=== PATIENT | female | born 2000 | race Caucasian/White ===

== ENCOUNTER 2023-10-24 13:21 | Outpatient (CLI) | payer OTHER, SELFPAY | END 2023-10-24 14:11 | disposition home or self-care (01) | LOC: LABOR 13:49 → OB 10-28 06:47 | PROVIDERS: Referring Provider Student in an Organized Health Care Education/Training Program; Visit Provider Student in an Organized Health Care Education/Training Program | DX: O47.03 False labor before 37 completed weeks of gestation, third trimester (principal); Z3A.36 36 weeks gestation of pregnancy | CPT/HCPCS: 59025; G0378; G0379 ==

== ENCOUNTER 2023-11-07 11:28 | Outpatient (CLI) | payer OTHER, SELFPAY | END 2023-11-07 12:05 | disposition home or self-care (01) | LOC: LABOR 11:39 → OB 11-11 13:08 | PROVIDERS: Referring Provider Student in an Organized Health Care Education/Training Program; Visit Provider Student in an Organized Health Care Education/Training Program | DX: O24.913 Unspecified diabetes mellitus in pregnancy, third trimester (principal); Z3A.38 38 weeks gestation of pregnancy | CPT/HCPCS: 59025; G0378; G0379 ==

== ENCOUNTER 2023-11-11 06:14 | Inpatient (IN) | payer OTHER, SELFPAY ==
[2023-11-11] MEDS: LIDOCAINE 1% 20 ML INJ (07:20)
[2023-11-11] MEDS: IBUPROFEN 600 MG TABLET PO (08:55)
[2023-11-11] MEDS: ACETAMINOPHEN 325 MG TABLET 650 MG PO (08:55)
--- NOTE | 2023-11-11 09:03 | PM.OBHP.IH.1 ---
OB HPI Date/Time Date of admission: 11/11/23 Date Patient Seen: 11/11/23 Time Patient Seen: 06:00 History of Present Condition Chief complaint: Labor JERILYN Calculator Estimated Delivery Date Method Current WG Current Estimate 11/17/23 LMP (Certain) 39w 1d : 1 Para: 0 Narrative: This is a G1 who presented to L&D complete and +2. has been complicated by intermittent care and type 1 diabetes. She has been refusing weekly NST and BPP. No recent ultrasound. She is refusing IV. She reports pushing at home since 2:30am. care: limited care Dating criteria OB: LMP confirmed by 1st trimester US Ultrasounds: normal 1st trimester US and normal mid trimester US Obstetrical complications: other (type 1 diabetes) Medical complications OB: none Preadmission Labs Last OB Lab Results: No Data to Display -: Chlamydia screen: negative and Gonorrhea screen: negative Evaluation Evaluation Baseline heart rate: 135 Variability: Average (6-10) monitor accelerations: Present Monitor Decelerations: Absent Uterine Contraction Intensity: Strong/Firm Category of Tracing: Reactive Dilation (cm): 10 Effacement (%): 100 PFSH Surgical History (Updated 10/01/23 @ 11:03 by Marcela Hilario RN) [place] teeth extracted History of tonsillectomy Family History (Updated 10/01/23 @ 11:06 by Marcela Hilario RN) Grandmother Bladder cancer Heavy smoker COPD (chronic obstructive pulmonary disease) Uncle Bladder cancer Aunt Skin cancer Grandfather Bladder cancer Aunt Type 1 diabetes Social History marital status: number of children: 0 household members: spouse lives independently: Yes caregiver/support person: No housing: house pets and animals: Yes (1 dog) education level: college occupational status: previously employed current occupational exposures/hazards: No special nancy needs: No travel history: recent seatbelt use: always water heater temp set < 120 deg: Yes working smoke detector in home: Yes fire extinguisher in home: Yes carbon monox detector in home: Yes firearms in home: Yes firearms unloaded and locked: Yes do you feel safe at home: Yes Smoking Status: Never smoker second hand exposure: No alcohol intake: former substance use type: does not use during the past year weight has: other well-balanced diet: daily or most days daily servings fruits/ve or more times/day caffeine: No (not even when not ) Type(s) of exercise: walking frequency: daily Meds Home Medications and Allergies Home Medications Medication Instructions Recorded Confirmed Type blood-glucose sensor (Dexcom G6 10/01/23 11/07/23 History Sensor device) vitamin-ferrous sulfate tab PO 10/01/23 11/07/23 History 27 mg iron-folic acid 0.8 mg tablet insulin aspart U-100 100 unit/mL 1 sliding scale dose SUBCUT 10/11/23 11/07/23 Rx subcutaneous solution (Novolog USEASDIRECTD #10 mL U-100 Insulin aspart) Allergies Allergy/AdvReac Type Severity Reaction Status Date / Time No Known Drug Allergies Allergy Unverified 11/07/23 10:54 Assessment and Plan Assessment and Plan Assessment and Plan narrative: Discussed that since patient has been pushing for 4 hours that delivery is indicated. I discussed risk of vaginal delivery including hemorrhage. Risk of vaginal delivery for baby includes shoulder dystocia which could lead to nerve damage, injury to baby or even . Patient initially refusing. Discussed risks multiple times. Patient agreeable to delivery. OR and anesthesia aware. Patient agreeable to IV. As prepping patient, water sponanteously ruptured and she delivered vaginally. Note to follow. Time-Based Coding :: Greater than 30 minutes spent with patient and on the chart (including review of chart, obtaining history, exam, reviewing outside data, placing orders, documenting exam and treatment plan, and counseling patient) on [DATE].
--- NOTE | 2023-11-11 09:14 | PM.OBPRVD ---
Events: Diabetes (type 1) Labor & Delivery Delivery date: 11/11/23 Intrapartal Events: Prolonged 2nd Stage > 2.5 hours Cervical ripening method: none Induction method: none Delivery monitor: external FHT Route of delivery: L&D Laceration Description: Perineal - 2nd Degree Delivery repair: vicryl Estimated blood loss (mL): 200 Anesthesia Type: None Complications: Shoulder dystocia Narrative: Patient presented to labor and delivery complete and +2. Patient reports pushing at home for prior 4 hours. Membranes intact. Refusing IV. complicated by Type 1 Diabetes. Patient refused weekly NST, BPP. No recent growth scan. During discussion regarding indications for , membranes spontaneously ruptured. She continued pushing with contractions and began . Patient was on hands and knees position. Head delivered without difficulty. With additional pushing, no further movement of fetus. Anterior shoulder was the right, it was palpated and behind pelvic bone. Room alerted of shoulder dystocia. Posterior arm (left) was grabbed and swept over abdomen and delivered atraumatically. With additional push, body was delivered. Total time of shoulder dystocia approximately 45 - 60 seconds. There was a loose body cord. Male with poor tone and color. Patient requested delayed cord clamping. was vigorously stimulated and dried off with warm blankets. began crying with good tone and improvement of color. passed to mother for skin to skin. At 15 minutes of life, cord was clamped and cut. Placenta delivered without difficulty. Patient declined pitocin. There was a second degree tear repaired with 3-0 vicryl. Fundus was firm. Scant bleeding. Plan for aftercare: Routine care
[2023-11-11] MEDS: WITCH HAZEL/GLYCERIN PADS 1 EACH TOP (09:38)
[2023-11-11] MEDS: LANOLIN OINT 7 GM 1 APPLIC TOP (09:39)
[2023-11-11] MEDS: DERMOPLAST SPRAY 20% 60 ML 1 SPRAY TOP (09:39)
--- NOTE | 2023-11-12 07:50 | P.PNOB_ITS ---
Subjective - OB Subjective Patient comments: no complaints [place] baby status: other (difficulty with breast feeding) feeding status: pumping and bottle feeding (supplementing with formula) Narrative: Mom sleeping soundly this AM. Dad reports she is doing well. Date Patient Seen: 11/12/23 Time Patient Seen: 07:30 Exam Narrative Exam Narrative: Resting soundly. Lochia appropriate per nursing. Assessment & Plan Plan day: 1 plan OB: routine care Comments: GBS pos with inadequate treatment. Recommend obs for 48 hours. Anticipate discharge tomorrow AM. Time-Based Coding :: 30 min spent with patient and on the chart (including review of chart, obtaining history, exam, reviewing outside data, placing orders, documenting exam and treatment plan, and counseling patient) on 11/11.
[2023-11-12] MEDS: PRENATAL VIT,CALC/IRON/FOLIC 1 TABLET 1 TAB PO (10:14)
[2023-11-12 14:17] VITALS: BP 109/58; PULSE 70; RESP 17; TEMP 36.1
--- NOTE | 2023-11-12 15:20 | PM.OBDS.1 ---
Discharge Providers Provider Date of admission: 11/11/23 06:14 Discharge Date: 11/12/23 Primary care physician: Talia KENNEDY Provider Consults: 11/11/23 06:21 Consult to Anesthesiology Urgent Comment: Consulting Provider: Anesthesiologist Reason for consultation: Epidural 11/12/23 07:37 Consult to Test Engine Mechanic Routine Comment: Discharge provider: Iliana Lopez MD Summary Hospital Course Date Patient Seen: 11/12/23 Time Patient Seen: 12:15 Diagnoses: Term , , Type 1 Diabetes Hospital Course: Patient presented to labor and delivery complete and +2. Patient reported pushing at home for prior 4 hours. Membranes intact. Initially refused IV but was agreeable. She did not receive antibiotics for GBS positive status. complicated by Type 1 Diabetes. Patient refused weekly NST, BPP. No recent growth scan. During discussion regarding indications for , membranes spontaneously ruptured. She continued pushing with contractions and began . Patient was on hands and knees position. Head delivered without difficulty. With additional pushing, no further movement of fetus. Anterior shoulder was the right, it was palpated behind pelvic bone. Room alerted of shoulder dystocia. Posterior arm (left) was grabbed and swept over abdomen and delivered atraumatically. With additional push, body was delivered. Total time of shoulder dystocia approximately 45 - 60 seconds. There was a loose body cord. Male with poor tone and color. Patient requested delayed cord clamping. was vigorously stimulated and dried off with warm blankets. began crying with good tone and improvement of color. passed to mother for skin to skin. At 15 minutes of life, cord was clamped and cut. Placenta delivered without difficulty. Patient declined pitocin. There was a second degree tear repaired with 3-0 vicryl. Fundus was firm. she recovered well. Pain and bleeding minimal. She had difficulty secondary to latch and suck. She supplemented with formula while pumping. She switched her insulin pump back to settings. [place] Peripartum Data Infant Delivery Method: Natural Vaginal Laceration Description: Vaginal - 2nd Degree Procedures: Shoulder dystocia resolved with posterior arm Status at Discharge Cognitive/behavioral status at discharge: oriented Functional status at discharge: independent ambulation Overall status at discharge: patient is back to baseline Time Spent with Patient Time attestation: Total time spent providing and/or coordinating discharge services: Time spent: Greater than 30 minutes Exam Vital Signs (past 8 hours): - 11/12/23 14:17 Temperature 97.0 F L Pulse Rate 70 Respiratory Rate 17 Blood Pressure 109/58 L Narrative Exam Narrative: NAD, fundus firm, breathing easily. Discharge Plan Discharge Plan Patient Disposition: Home Discharge orders & Medications Prescriptions: New acetaminophen 325 mg Tablet 650 mg PO Q6HR PRN (Reason: Pain, Mild (1-3)) Qty: 60 0RF ibuprofen 600 mg Tablet 600 mg PO Q6HR PRN (Reason: Pain, Mild (1-3)) Qty: 60 0RF Continued insulin aspart U-100 [Novolog U-100 Insulin aspart] 100 unit/mL solution 1 sliding scale dose SUBCUT USEASDIRECTD Qty: 10 0RF vit-ferrous sulfat-FA 27 mg iron- 0.8 mg tablet See Rx Instructions .ROUTE .COMPLEX Rx Instructions: Take as directed (DME) Dexcom G6 Sensor Device See Rx Instructions .Route Rx Instructions: As directed Follow up/Referrals: Iliana Lopez MD [Physician] - (6 week Appt w/ Dr. Lopez on Dec.16 @ 10:30am.Appointment with the clinic on at 11:00 AM.) Visit Report/Discharge Packet Instructions: DI for Labor and Delivery, Vaginal Stand Alone Forms: Discharge: Care, Patient Portal/API, Stroke Signs & Symptoms Discharge Data Primary Care Provider: Talia Kelly
== END 2023-11-12 17:18 | disposition home or self-care (01) | DRG 807 ==
PROVIDERS: Admitting Provider Student in an Organized Health Care Education/Training Program; PCP Nurse Practitioner Family; Referring Provider Student in an Organized Health Care Education/Training Program; Visit Provider Student in an Organized Health Care Education/Training Program
DX: O24.02 Pre-existing type 1 diabetes mellitus, in childbirth (principal); Z37.0 Single live birth; O63.1 Prolonged second stage (of labor); O70.1 Second degree perineal laceration during delivery; O99.824 Streptococcus B carrier state complicating childbirth; Z3A.39 39 weeks gestation of pregnancy; Z79.4 Long term (current) use of insulin
CPT/HCPCS: 59050; G0379

== ENCOUNTER 2024-08-10 13:45 | Outpatient (RCR) | payer OTHER, SELFPAY ==
--- NOTE | 2024-02-28 17:03 | PT.OIE ---
Current Diagnoses Other female genital prolapse (02/28/24) Past Surgical History (Last Updated 10/01/23 @ 11:03 by Marcela Hilario RN) History of tonsillectomy [place] teeth extracted Visit Care Team Role Provider Type CHELO Candelario Family Provider Non-Staff Primary Care Provider Specialty: Nursing Address: [facility] [address] [place], [address] Email: Iliana Lopez MD Attending Provider Physician Referring Provider Specialty: Family Practice Obstetrics Address: [address] [place] [address], [id number] Email: [email or web address] Physical Therapy Initial Evaluation PT-OP-A Visit Information Start: 02/20/24 07:28 Freq: Status: Active Protocol: Document 02/28/24 14:37 LRN (Rec: 02/28/24 17:02 LRN [id number]) Out-Patient Physical Therapy Visit Information Visit Information Visit Type Initial Evaluation Visit Start Time 14:37 Visit Stop Time 15:24 Visit Number 1 Evaluation Information Evaluation Date 02/28/24 Precautions Precautions Diabetes type 1, Back pain since she was 6 months , since childbirth has tailbone pain. PT-OP-B Current Condition Start: 02/20/24 07:28 Freq: Status: Active Protocol: Document 02/28/24 14:37 LRN (Rec: 02/28/24 17:02 LRN [id number]) Current Condition History of Current Condition Onset Date 11/11/2023 Current Complaints Pelvic organ prolapse History of Current Condition Pt is 3.5 month post- diagnosed with pelvic organ prolapse after pushing 5 hrs with 2nd degree tear up into the cervix. States stitches are dissolved and scar was present at 5 wk appt, but she has not had tear checked for healed. Her main complaint is that she has pain with intercourse, mostly with initial insertion. She denies urinary leakage problems initiating a urine stream, but reports she strains to complete voiding. Pt was on hands/knees with childbirth. Tailbone pain with sitting or walking/exerting too much. Dr Muniz said there was a high probability of tailbone cracked with how long she pushed. Natural vaginal childbirth. Prior Treatments and Tests None Developmental History Developmental History Pt with first child and is breast feeding. 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 spouse with no family locally. Insulin dependent diabetes. PT-OP-C Subjective Start: 02/20/24 07:28 Freq: Status: Active Protocol: Document 02/28/24 14:37 LRN (Rec: 02/28/24 17:02 LRN [id number]) Patient Questionnaires Pelvic Pain and Urgency/Frequency Patient Symptom Scale Pelvic Pain Score 9 OP-PT Pain Assessment Pain Assessment Grid Paper Pain Assessment Grid Completed Yes Location Tailbone Pain Location Details Tailbone pain Intensity 4 Scale Used Numeric (0 - 10) Pelvic floor Pain Location Details Labia Majora/minora, vaginal entry PF ms, & deep PF ms Intensity 3 Scale Used Numeric (0 - 10) PT-OP-I Pelvic Floor Start: 02/20/24 07:28 Freq: Status: Active Protocol: Document 02/28/24 14:37 LRN (Rec: 02/28/24 17:02 LRN [id number]) Pelvic Floor Assessment Urine Other Urinary Symptoms No urinary leakage. Bowel Other Bowel Symptoms No constipation Bowel Movement Frequency 1 [place] Stool Chart Type 1-7 3 Pelvic Clock Pelvic Clock 12-3 Tenderness Pelvic Clock 3-6 Tenderness Pelvic Clock 6-9 Tenderness Pelvic Clock 9-12 Tenderness Pelvic Clock Other Tenderness: Superficial PF ms: Entire PF clock but mostly 2 , 4 & 8 Deep PF ms: Mostly PF clock 3 -11. Prolapse Cystocele Grade 3 Prolapse Comments Pt Bladder is dropped into 1/2 vaginal opening, but is not a near the opening entry. Deferred assessing for uterine prolapse due to pt tenderness . Perineal Descent Resting Absent Bearing Absent Contraction Ability Voluntary Relaxation Moderate Manual Muscle Testing Left 3 Manual Muscle Testing Right 3 Comments Pelvic Floor Comments Deferred endurance and quick contraction assessment due to pt tenderness. PT-OP-J Posture/Palpation/Skin Start: 02/20/24 07:28 Freq: Status: Active Protocol: Document 02/28/24 14:37 LRN (Rec: 02/28/24 17:02 LRN [id number]) Posture Evaluation Position Standing Head/C-Spine Posture Forward Head T-Spine Posture Increased Kyphosis L-Spine Posture Increased Lordosis Pelvis Posture (L) PSIS Posterior Knee Posture (L) Genu Varus,(R) Genu Varus Comments Posture Comments Posterior L sacral JOYCE and lateral sacral border Palpation Assessment Location ABdomen Palpation Location Abdomen for diastasis rectus and pain. Palpation Findings Tenderness Palpation Details Umbilicus 3 above: 1 finger width (~2.5 cm), shallow at xiphoid process. Umbilicus 2 above: 2 finger widths, shallow Umbilicus 1 above: 2 finger widths Umbilicus Umbilicus: 1 below: 1.5 finger widths Umbilicus: 2 below: .5 finger widths, very shallow Umbilicus: 3 below: closed R leg long in supine Palpation Location R leg long PT-OP-K Range of Motion Start: 02/20/24 07:28 Freq: Status: Active Protocol: Document 02/28/24 14:37 LRN (Rec: 02/28/24 17:02 LRN [id number]) Lumbar Spine Range of Motion Lumbar Spine Active Degrees Testing Position Standing Flexion 100 Extension 25 Rotation Left 45 Rotation Right 45 Lateral Flexion Left 22 Lateral Flexion Right 22 Comments Rotation is with trunk extension Hip Goniometric Range of Motion Hip Right Passive Testing Position Supine Abduction 40 Internal Rotation 25 External Rotation 65 Left Passive Testing Position Supine Abduction 40 Internal Rotation 30 External Rotation 65 PT-OP-M Strength Start: 02/20/24 07:28 Freq: Status: Active Protocol: Document 02/28/24 14:37 LRN (Rec: 02/28/24 17:02 LRN [id number]) Trunk Strength Trunk Manual Muscle Testing Core Stabilization Abdominal doming noted with pt transfers. Hip Strength Hip Manual Muscle Testing Right External Rotation 3 Fair Internal Rotation 4+ Good+ Comments Strength is 5/5 except as indicated above. Hip ext not assessed. Left External Rotation 3 Fair Internal Rotation 4+ Good+ Comments Strength is 5/5 except as indicated above. Hip ext not assessed. PT-OP-Q Treatments Start: 02/20/24 07:28 Freq: Status: Active Protocol: Document 02/28/24 14:37 LRN (Rec: 02/28/24 17:02 LRN [id number]) Self-Care/Home Management Treatment Education Other Education Discussed results of evaluation, goals, treatment, and plan of care (POC) with pt , discussed attendance/cx/dns policy; pt agreeable to evaluation, goals, treatment, attendance/cx/dns policy and POC. Activities Self-Care/Home Management Activities Issued & reviewed HEP: Deep breathing and issued handout for Genital/Vulvar care. PT-OP-T Assessment and Plan Start: 02/20/24 07:28 Freq: Status: Active Protocol: Document 02/28/24 14:37 LRN (Rec: 02/28/24 17:02 LRN [id number]) Physical Therapy Assessment Rehab Potential Rehabilitation Potential Good Evaluation Complexity Number of Personal Factors/Comorbidities 3 or More Number of Body Systems Impaired 4 or More Clinical Presentation at Evaluation Evolving Impairments Impairments Activity Tolerance,Pain, Posture,ROM,Soft Tissue Mobility,Strength,Transfers Goals Three Impairment Tailbone pain rated 4/10. Short Term Goal (STG) Pt to demonstrate normal pelvic positioning, improve hip mobility (rot, flex) and decrease coccygeal muscle tightness, with 50% less tailbone pain. STG Duration 05/08/24 Billing Supervisor Goal (LTG) Improve pelvic stability to decrease tailbone pain with sitting or exertional walking. LTG Duration 07/17/24 Two Impairment Dyspareunia, pain mostly with initial insertion (3/10) Short Term Goal (STG) Pt will be able to self stretch with wand properly to reduce pain at superficial PF muscles around the clock. STG Duration 05/08/24 Intermediate Goal (LTG) Decrease pain of Deep PF muscles around the clock with 0-1/10 pain during intercourse . LTG Duration 07/17/24 One Impairment Pt lacks an independent self care HEP. Short Term Goal (STG) Pt will be educated and able to demonstrate improved posturing and transfers to protect her diastasis rectus and perform proper deep breathing for completing urinary voiding without having to strain. 02/28/24: Initiated HEP: deep breathing ex. STG Duration 05/08/24 progressed 02/28/24 Intermediate Goal (LTG) Pt will be independent in a self care HEP for PF and hip/ core self stretching ex's, core/pelvic stabilization after corrections, and hip ( rot, flex)/trunk (rot) mobility ex's. LTG Duration 07/17/24 Assessment Summary Assessment The pt is a 23 yo female who presents with c/o dyspareunia with intercourse on insertion due to PF & hip/trunk tightness, and pelvic positional dyfunction (R innominate anter rot/L innominate aerial gunner rot; sacrum in rotation). She has redness of her labia majora and minor with tenderness present in the labia minor and may need an external cream to improve tissue health if proper genital/vulvar hygiene does not resolve her redness/ tenderness. She has tightness and tenderness around her entire superficial PF muscles, most tender at PF clock 2, 4- 5 & 8, and to a lesser degree her deep PF muscles around the PF clock. She has tightness of hip rotators, IR more than ER muscles, and weakness of her abdominal muscles with doming visible when she transfers due to a palpable diastasis rectus. 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 Hindering her rehabilitation program is her current and hormonal status. It is expected that the pt's rehabilitation will take longer than expected due to her multiple areas of dysfunction and scheduling difficulties, especially with the upcoming holiday schedules . The pt will benefit from skilled physical therapy, identified below, to work towards achieving the above stated goals. Physical Therapy Plan Frequency and Duration Frequency of Treatment 1x/Week Duration of treatment (weeks) 20 Plan of Care Start Date 02/28/24 Plan of Care End Date 07/17/24 Therapeutic Interventions Therapeutic Interventions Home Exercise Program,Joint Mobilizations,Manual Therapy, Neuromuscular Re-education, Self-Care/Home Management,Soft Tissue Mobilization, Therapeutic Activities, Therapeutic Exercises Modalities Biofeedback Next Visit Focus/Plan Next Note Type Treatment Note Next Visit Plan PF stretching and pain reduction. Next: Assess tailbone pain and trunk strength/hip ext strength, review self care wand stretching, deep breathing, and genital/vulvar care. Discuss pt to check with MD regarding cream to improve tissue health externally and possibly internally. POC: Therapeutic ex: hip/ trunk stretching, core stab w/ DR closure exers. Pt education HEP hip, trunk stretches, DR care; Manual therapy - taping, PF stretching, sacral balancing if R innominate anteriorly rotated and sacrum L rotated. Biofeedback with vaginal sensor for PF relaxation awareness when able to tolerated electrode; Therapeutic Activities - transfers for
--- NOTE | 2024-02-28 17:03 | PT.OPPOC ---
Physical, Occupational & Speech Therapy At [facility] Current Diagnoses Other female genital prolapse (02/28/24) Visit Care Team Role Provider Type CHELO Candelario Family Provider Non-Staff Primary Care Provider Specialty: Nursing Address: [facility], [facility] [place], [address] Email: Iliana Lopez MD Attending Provider Physician Referring Provider Specialty: Family Practice Obstetrics Address: [address] [place] [address], [address] Email: [email or web address] Plan Of Care PT-OP-B Current Condition Start: 02/20/24 07:28 Freq: Status: Active Protocol: Document 02/28/24 14:37 LRN (Rec: 02/28/24 17:02 LRN [id number]) Current Condition History of Current Condition Onset Date 11/11/2023 Current Complaints Pelvic organ prolapse History of Current Condition Pt is 3.5 month post- diagnosed with pelvic organ prolapse after pushing 5 hrs with 2nd degree tear up into the cervix. States stitches are dissolved and scar was present at 5 wk appt, but she has not had tear checked for healed. Her main complaint is that she has pain with intercourse, mostly with initial insertion. She denies urinary leakage problems initiating a urine stream, but reports she strains to complete voiding. Pt was on hands/knees with childbirth. Tailbone pain with sitting or walking/exerting too much. Dr Muniz said there was a high probability of tailbone cracked with how long she pushed. Natural vaginal childbirth. Prior Treatments and Tests None Developmental History Developmental History Pt with first child and is breast feeding. 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 spouse with no family locally. Insulin dependent diabetes. PT-OP-T Assessment and Plan Start: 02/20/24 07:28 Freq: Status: Active Protocol: Document 02/28/24 14:37 LRN (Rec: 02/28/24 17:02 LRN [id number]) Physical Therapy Assessment Rehab Potential Rehabilitation Potential Good Evaluation Complexity Number of Personal Factors/Comorbidities 3 or More Number of Body Systems Impaired 4 or More Clinical Presentation at Evaluation Evolving Impairments Impairments Activity Tolerance,Pain, Posture,ROM,Soft Tissue Mobility,Strength,Transfers Goals Three Impairment Tailbone pain rated 4/10. Short Term Goal (STG) Pt to demonstrate normal pelvic positioning, improve hip mobility (rot, flex) and decrease coccygeal muscle tightness, with 50% less tailbone pain. STG Duration 05/08/24 Cloth Covered Helmet Puller Goal (LTG) Improve pelvic stability to decrease tailbone pain with sitting or exertional walking. LTG Duration 07/17/24 Two Impairment Dyspareunia, pain mostly with initial insertion (3/10) Short Term Goal (STG) Pt will be able to self stretch with wand properly to reduce pain at superficial PF muscles around the clock. STG Duration 05/08/24 Cloth Covered Helmet Puller Goal (LTG) Decrease pain of Deep PF muscles around the clock with 0-1/10 pain during intercourse . LTG Duration 07/17/24 One Impairment Pt lacks an independent self care HEP. Short Term Goal (STG) Pt will be educated and able to demonstrate improved posturing and transfers to protect her diastasis rectus and perform proper deep breathing for completing urinary voiding without having to strain. 02/28/24: Initiated HEP: deep breathing ex. STG Duration 05/08/24 progressed 02/28/24 Long-Term Goal (LTG) Pt will be independent in a self care HEP for PF and hip/ core self stretching ex's, core/pelvic stabilization after corrections, and hip ( rot, flex)/trunk (rot) mobility ex's. LTG Duration 07/17/24 Assessment Summary Assessment The pt is a 23 yo female who presents with c/o dyspareunia with intercourse on insertion due to PF & hip/trunk tightness, and pelvic positional dyfunction (R innominate anter rot/L innominate fountain helper rot; sacrum in rotation). She has redness of her labia majora and minor with tenderness present in the labia minor and may need an external cream to improve tissue health if proper genital/vulvar hygiene does not resolve her redness/ tenderness. She has tightness and tenderness around her entire superficial PF muscles, most tender at PF clock 2, 4- 5 & 8, and to a lesser degree her deep PF muscles around the PF clock. She has tightness of hip rotators, IR more than ER muscles, and weakness of her abdominal muscles with doming visible when she transfers due to a palpable diastasis rectus. 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 Hindering her rehabilitation program is her current and hormonal status. It is expected that the pt's rehabilitation will take longer than expected due to her multiple areas of dysfunction and scheduling difficulties, especially with the upcoming holiday schedules . The pt will benefit from skilled physical therapy, identified below, to work towards achieving the above stated goals. Physical Therapy Plan Frequency and Duration Frequency of Treatment 1x/Week Duration of treatment (weeks) 20 Plan of Care Start Date 02/28/24 Plan of Care End Date 07/17/24 Therapeutic Interventions Therapeutic Interventions Home Exercise Program,Joint Mobilizations,Manual Therapy, Neuromuscular Re-education, Self-Care/Home Management,Soft Tissue Mobilization, Therapeutic Activities, Therapeutic Exercises Modalities Biofeedback Next Visit Focus/Plan Next Note Type Treatment Note Next Visit Plan PF stretching and pain reduction. Next: Assess tailbone pain and trunk strength/hip ext strength, review self care wand stretching, deep breathing, and genital/vulvar care. Discuss pt to check with MD regarding cream to improve tissue health externally and possibly internally. POC: Therapeutic ex: hip/ trunk stretching, core stab w/ DR closure exers. Pt education HEP hip, trunk stretches, DR care; Manual therapy - DR taping, PF stretching, sacral balancing if R innominate anteriorly rotated and sacrum L rotated. Biofeedback with vaginal sensor for PF relaxation awareness when able to tolerated electrode; Therapeutic Activities - transfers for DR. Plan of Care Dates Plan of Care Start Date 02/28/24 Plan of Care End Date 07/17/24 Electronically Signed by: Felecia Barclay, PT 02/28/24 4053 If you are in agreement with this Plan of Care, please return a signed and dated copy. I have reviewed this Plan of Care and certify that the skilled therapy services above are required to meet the patient?s needs. Physician Signature Date Printed Name and Credentials Clinical Instructor Signature Printed Name and Credentials
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
--- NOTE | 2024-04-20 16:53 | PT.OTN ---
Current Diagnoses Other female genital prolapse (04/20/24) Physical Therapy Treatment Note PT-OP-A Visit Information Start: 02/20/24 07:28 Freq: Status: Active Protocol: Document 04/20/24 09:54 LRN (Rec: 04/20/24 10:42 LRN [id number]) Out-Patient Physical Therapy Visit Information Visit Information Visit Type Treatment Note Visit Start Time 09:55 Visit Stop Time 10:34 Visit Number 3 Evaluation Information Evaluation Date 02/28/24 Precautions Precautions Diabetes type 1, Back pain since she was 6 months , since childbirth has tailbone pain. PT-OP-B Current Condition Start: 02/20/24 07:28 Freq: Status: Active Protocol: Document 02/28/24 14:37 LRN (Rec: 02/28/24 17:02 LRN [id number]) Current Condition History of Current Condition Onset Date 11/11/2023 Current Complaints Pelvic organ prolapse History of Current Condition Pt is 3.5 month post- diagnosed with pelvic organ prolapse after pushing 5 hrs with 2nd degree tear up into the cervix. States stitches are dissolved and scar was present at 5 wk appt, but she has not had tear checked for healed. Her main complaint is that she has pain with intercourse, mostly with initial insertion. She denies urinary leakage problems initiating a urine stream, but reports she strains to complete voiding. Pt was on hands/knees with childbirth. Tailbone pain with sitting or walking/exerting too much. Dr Muniz said there was a high probability of tailbone cracked with how long she pushed. Natural vaginal childbirth. Prior Treatments and Tests None Developmental History Developmental History Pt with first child and is breast feeding. 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 spouse with no family locally. Insulin dependent diabetes. PT-OP-C Subjective Start: 02/20/24 07:28 Freq: Status: Active Protocol: Document 04/20/24 09:54 LRN (Rec: 04/20/24 10:42 LRN [id number]) OP-PT Subjective Patient Comments Patient Comments Able to successfully have intercourse w/o pain. Had a period 2 days after last treatment and was first period after delivery and normally has a discharge before period. Still has tailbone pain. Baseline pain is 4-5/10, post baby was 7-8/10, now pain is 2-3/10 is on insertion. PT-OP-I Pelvic Floor Start: 02/20/24 07:28 Freq: Status: Active Protocol: Document 02/28/24 14:37 LRN (Rec: 02/28/24 17:02 LRN [id number]) Pelvic Floor Assessment Urine Other Urinary Symptoms No urinary leakage. Bowel Other Bowel Symptoms No constipation Bowel Movement Frequency 1 Oxford Stool Chart Type 1-7 3 Pelvic Clock Pelvic Clock 12-3 Tenderness Pelvic Clock 3-6 Tenderness Pelvic Clock 6-9 Tenderness Pelvic Clock 9-12 Tenderness Pelvic Clock Other Tenderness: Superficial PF ms: Entire PF clock but mostly 2 , 4 & 8 Deep PF ms: Mostly PF clock 3 -11. Prolapse Cystocele Grade 3 Prolapse Comments Pt Bladder is dropped into 1/2 vaginal opening, but is not a near the opening entry. Deferred assessing for uterine prolapse due to pt tenderness . Perineal Descent Resting Absent Bearing Absent Contraction Ability Voluntary Relaxation Moderate Manual Muscle Testing Left 3 Manual Muscle Testing Right 3 Comments Pelvic Floor Comments Deferred endurance and quick contraction assessment due to pt tenderness. PT-OP-J Posture/Palpation/Skin Start: 02/20/24 07:28 Freq: Status: Active Protocol: Document 02/28/24 14:37 LRN (Rec: 02/28/24 17:02 [facility] [id number]) Posture Evaluation Position Standing Head/C-Spine Posture Forward Head T-Spine Posture Increased Kyphosis L-Spine Posture Increased Lordosis Pelvis Posture (L) PSIS Posterior Knee Posture (L) Genu Varus,(R) Genu Varus Comments Posture Comments Posterior L sacral JOYCE and lateral sacral border Palpation Assessment Location ABdomen Palpation Location Abdomen for diastasis rectus and pain. Palpation Findings Tenderness Palpation Details Umbilicus 3 above: 1 finger width (~2.5 cm), shallow at xiphoid process. Umbilicus 2 above: 2 finger widths, shallow Umbilicus 1 above: 2 finger widths Umbilicus Umbilicus: 1 below: 1.5 finger widths Umbilicus: 2 below: .5 finger widths, very shallow Umbilicus: 3 below: closed R leg long in supine Palpation Location R leg long PT-OP-K Range of Motion Start: 02/20/24 07:28 Freq: Status: Active Protocol: Document 02/28/24 14:37 LRN (Rec: 02/28/24 17:02 LRN [id number]) Lumbar Spine Range of Motion Lumbar Spine Active Degrees Testing Position Standing Flexion 100 Extension 25 Rotation Left 45 Rotation Right 45 Lateral Flexion Left 22 Lateral Flexion Right 22 Comments Rotation is with trunk extension Hip Goniometric Range of Motion Hip Right Passive Testing Position Supine Abduction 40 Internal Rotation 25 External Rotation 65 Left Passive Testing Position Supine Abduction 40 Internal Rotation 30 External Rotation 65 PT-OP-M Strength Start: 02/20/24 07:28 Freq: Status: Active Protocol: Document 02/28/24 14:37 LRN (Rec: 02/28/24 17:02 LRN [id number]) Trunk Strength Trunk Manual Muscle Testing Core Stabilization Abdominal doming noted with pt transfers. Hip Strength Hip Manual Muscle Testing Right External Rotation 3 Fair Internal Rotation 4+ Good+ Comments Strength is 5/5 except as indicated above. Hip ext not assessed. Left External Rotation 3 Fair Internal Rotation 4+ Good+ Comments Strength is 5/5 except as indicated above. Hip ext not assessed. PT-OP-Q Treatments Start: 02/20/24 07:28 Freq: Status: Active Protocol: Document 04/20/24 09:54 LRN (Rec: 04/20/24 10:42 LRN [id number]) Therapeutic Exercises Supine Exercises Deep Breathing Supine Exercise Name Deep Breathing Reps/Minutes 2' Comments Cued to breath slower and longer. Happy Baby Pose Reps/Minutes 2' Comments Extra tiime to determine max tolerated stretch. Manual Therapy Treatment Consent Patient gave verbal consent for manual Yes treatment Soft Tissue Mobilization Coccyx laterally Body Location Externally L lateral coccygeal ms. Mobilization Type Sustained Pressure,Trigger Point Release Intensity/Depth Mild Body Position R sldelie Comments Mild release. PF Body Location Superficial & Deep Ms stretching, mostly 2-6 & 8 of PF clock Mobilization Type Sustained Pressure Intensity/Depth superficial to mod Body Position Supine Comments Good release with R coccygeal ms. PT-OP-T Assessment and Plan Start: 02/20/24 07:28 Freq: Status: Active Protocol: Document 04/20/24 09:54 LRN (Rec: 04/20/24 10:42 LRN [id number]) Physical Therapy Assessment Goals Three Impairment Tailbone pain rated 4/10. Short Term Goal (STG) Pt to demonstrate normal pelvic positioning, improve hip mobility (rot, flex) and decrease coccygeal muscle tightness, with 50% less tailbone pain. 04/20/24: Pain rated 2-3/10 after PF stretching. STG Duration 05/08/24 progressing Snf Goal (LTG) Improve pelvic stability to decrease tailbone pain with sitting or exertional walking. LTG Duration 07/17/24 Two Impairment Dyspareunia, pain mostly with initial insertion (3/10) Short Term Goal (STG) Pt will be able to self stretch with wand properly to reduce pain at superficial PF muscles around the clock. 03/23/24: Pt self stretching with wand; mildly improved PF mobility. 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 04/20/24: Pain rated 2-3/10 after PF stretching. LTG Duration 07/17/24 progressing 04/20/24 One Impairment Pt lacks an independent self care HEP. Short Term Goal (STG) Pt will be educated and able to demonstrate improved posturing and transfers to protect her diastasis rectus and perform proper deep breathing for completing urinary voiding without having to strain. 02/28/24: Initiated HEP: deep breathing ex. STG Duration 05/08/24 progressed 02/28/24 Snf Goal (LTG) Pt will be independent in a self care HEP for PF and hip/ core self stretching ex's, core/pelvic stabilization after corrections, and hip ( rot, flex)/trunk (rot) mobility ex's. LTG Duration 07/17/24 Assessment Summary Assessment 23 yo female with dyspareunia on insertion due to tightness of PF, also with hip/trunk tightness, pelvic positional dys (anter rot R innom/L unix administrator rot; & rot sacrum). She is responding well to therapy with lessening of pain with intercourse. Today she demonstrated a + response to posterior PF internal stretching with pain reduced from 7-8/10 to 2-3/10 ( baseline 4-5/10). Stretching at coccyx externally did not elicit as much of a significant response. Pt notes her vaginal discharge was similiar to pre-period discharge and that the discharge last session was just before restart of her menstrual cycle for the first time since childbirthing, and she has had not other symptoms (temp, itching, redness, discomfort, chunky discharge) to indicate possible vaginal infection; therefore MD follow up for infection probably not needed. PF tissues appear mildly red as she has been wearing pads for her period, otherwise her tissues do not appear excessively fragile and dry today. Physical Therapy Plan Frequency and Duration Frequency of Treatment 1x/Week Duration of treatment (weeks) 20 Plan of Care Start Date 02/28/24 Plan of Care End Date 07/17/24 Next Visit Focus/Plan Next Visit Plan Next: Coccygeal ms stretching internally L side>R side, and trunk strength/hip ext strength (if needed, coccyx mob on hands/knees). Posture training. Improve hip mobility (rot, flex). Manual: Self stretch with fingers lateral to lateral coccyx (?R). POC: Therapeutic ex: hip/ trunk stretching, core stab w/ DR closure exers. Pt education HEP hip, trunk stretches, DR care; Manual therapy - DR taping, PF stretching, sacral balancing if R innominate anteriorly rotated and sacrum L rotated. Biofeedback with vaginal sensor for PF relaxation awareness when able to tolerated electrode; Therapeutic Activities - transfers for
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
--- NOTE | 2024-05-19 16:51 | PT.OTN ---
Current Diagnoses Other female genital prolapse (05/19/24) Physical Therapy Treatment Note PT-OP-A Visit Information Start: 02/20/24 07:28 Freq: Status: Active Protocol: Document 05/19/24 12:17 LRN (Rec: 05/19/24 13:05 LRN [id number]) Out-Patient Physical Therapy Visit Information Visit Information Visit Type Treatment Note Visit Start Time 12:17 Visit Stop Time 12:58 Visit Number 5 Evaluation Information Evaluation Date 02/28/24 Precautions Precautions Diabetes type 1, Back pain since she was 6 months , since childbirth has tailbone pain. PT-OP-B Current Condition Start: 02/20/24 07:28 Freq: Status: Active Protocol: Document 02/28/24 14:37 LRN (Rec: 02/28/24 17:02 LRN [id number]) Current Condition History of Current Condition Onset Date 11/11/2023 Current Complaints Pelvic organ prolapse History of Current Condition Pt is 3.5 month post- diagnosed with pelvic organ prolapse after pushing 5 hrs with 2nd degree tear up into the cervix. States stitches are dissolved and scar was present at 5 wk appt, but she has not had tear checked for healed. Her main complaint is that she has pain with intercourse, mostly with initial insertion. She denies urinary leakage problems initiating a urine stream, but reports she strains to complete voiding. Pt was on hands/knees with childbirth. Tailbone pain with sitting or walking/exerting too much. Dr Muniz said there was a high probability of tailbone cracked with how long she pushed. Natural vaginal childbirth. Prior Treatments and Tests None Developmental History Developmental History Pt with first child and is breast feeding. 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 spouse with no family locally. Insulin dependent diabetes. PT-OP-C Subjective Start: 02/20/24 07:28 Freq: Status: Active Protocol: Document 05/19/24 12:17 LRN (Rec: 05/19/24 13:05 LRN [id number]) OP-PT Subjective Patient Comments Patient Comments Since period started having hives, but not in genital area . With intercourse, having different kind of pain, possible from stretching inner thighs. Slight pain with insertion, pain is more with movement, no pain with deep thrust. Pt seeing physician tomorrow for the hives, but she will ask for OBG referral to check for vaginal dryness. PT-OP-I Pelvic Floor Start: 02/20/24 07:28 Freq: Status: Active Protocol: Document 02/28/24 14:37 LRN (Rec: 02/28/24 17:02 LRN [id number]) Pelvic Floor Assessment Urine Other Urinary Symptoms No urinary leakage. Bowel Other Bowel Symptoms No constipation Bowel Movement Frequency 1 [place] Stool Chart Type 1-7 3 Pelvic Clock Pelvic Clock 12-3 Tenderness Pelvic Clock 3-6 Tenderness Pelvic Clock 6-9 Tenderness Pelvic Clock 9-12 Tenderness Pelvic Clock Other Tenderness: Superficial PF ms: Entire PF clock but mostly 2 , 4 & 8 Deep PF ms: Mostly PF clock 3 -11. Prolapse Cystocele Grade 3 Prolapse Comments Pt Bladder is dropped into 1/2 vaginal opening, but is not a near the opening entry. Deferred assessing for uterine prolapse due to pt tenderness . Perineal Descent Resting Absent Bearing Absent Contraction Ability Voluntary Relaxation Moderate Manual Muscle Testing Left 3 Manual Muscle Testing Right 3 Comments Pelvic Floor Comments Deferred endurance and quick contraction assessment due to pt tenderness. PT-OP-J Posture/Palpation/Skin Start: 02/20/24 07:28 Freq: Status: Active Protocol: Document 02/28/24 14:37 LRN (Rec: 02/28/24 17:02 N [id number]) Posture Evaluation Position Standing Head/C-Spine Posture Forward Head T-Spine Posture Increased Kyphosis L-Spine Posture Increased Lordosis Pelvis Posture (L) PSIS Posterior Knee Posture (L) Genu Varus,(R) Genu Varus Comments Posture Comments Posterior L sacral JOYCE and lateral sacral border Palpation Assessment Location ABdomen Palpation Location Abdomen for diastasis rectus and pain. Palpation Findings Tenderness Palpation Details Umbilicus 3 above: 1 finger width (~2.5 cm), shallow at xiphoid process. Umbilicus 2 above: 2 finger widths, shallow Umbilicus 1 above: 2 finger widths Umbilicus Umbilicus: 1 below: 1.5 finger widths Umbilicus: 2 below: .5 finger widths, very shallow Umbilicus: 3 below: closed R leg long in supine Palpation Location R leg long PT-OP-K Range of Motion Start: 02/20/24 07:28 Freq: Status: Active Protocol: Document 02/28/24 14:37 LRN (Rec: 02/28/24 17:02 LRN [id number]) Lumbar Spine Range of Motion Lumbar Spine Active Degrees Testing Position Standing Flexion 100 Extension 25 Rotation Left 45 Rotation Right 45 Lateral Flexion Left 22 Lateral Flexion Right 22 Comments Rotation is with trunk extension Hip Goniometric Range of Motion Hip Right Passive Testing Position Supine Abduction 40 Internal Rotation 25 External Rotation 65 Left Passive Testing Position Supine Abduction 40 Internal Rotation 30 External Rotation 65 PT-OP-M Strength Start: 02/20/24 07:28 Freq: Status: Active Protocol: Document 02/28/24 14:37 LRN (Rec: 02/28/24 17:02 LRN [id number]) Trunk Strength Trunk Manual Muscle Testing Core Stabilization Abdominal doming noted with pt transfers. Hip Strength Hip Manual Muscle Testing Right External Rotation 3 Fair Internal Rotation 4+ Good+ Comments Strength is 5/5 except as indicated above. Hip ext not assessed. Left External Rotation 3 Fair Internal Rotation 4+ Good+ Comments Strength is 5/5 except as indicated above. Hip ext not assessed. PT-OP-Q Treatments Start: 02/20/24 07:28 Freq: Status: Active Protocol: Document 05/19/24 12:17 LRN (Rec: 05/19/24 13:05 LRN [id number]) Therapeutic Activity Therapeutic Activity Sit/stand posture Name Sit & stand posture training Reps/Minutes 2' Transfer sup>sit Name Transfer training sup>sit for DR protection Reps/Minutes 5' Comments Pt needed cuing for keeping core in neutral as pt tends to be flexed. 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 PF Body Location PF internally of 5-6, 8 of PF clock and pt training for self stretch Mobilization Type Myofascial Release,Sustained Pressure Intensity/Depth Moderate Body Position Prone Comments Pt was able to use wand with better understanding of the depth to insert to stretch deep PF ms and location of current tenderness. Pt was able to perform on self safe and properly. Self-Care/Home Management Treatment Activities Self-Care/Home Management Activities Issued handouts for self care : Proper sitting and standing posture, and log roll method for DR protection. PT-OP-T Assessment and Plan Start: 02/20/24 07:28 Freq: Status: Active Protocol: Document 05/19/24 12:17 LRN (Rec: 05/19/24 13:05 LRN [id number]) Physical Therapy Assessment Goals Three Impairment Tailbone pain rated 4/10. Short Term Goal (STG) Pt to demonstrate normal pelvic positioning, improve hip mobility (rot, flex) and decrease coccygeal muscle tightness, with 50% less tailbone pain. 04/20/24: Pain rated 2-3/10 after PF stretching. 05/19/24: No pain with immediate sitting, but has it after sitting 45-60+ mimutes. STG Duration 05/08/24 progressing Digital Production Operator Goal (LTG) Improve pelvic stability to decrease tailbone pain with sitting or exertional walking. 05/19/24: Walking more than 2 miles or hills have tailbone pain. LTG Duration 07/17/24 Two Impairment Dyspareunia, pain mostly with initial insertion (3/10) Short Term Goal (STG) Pt will be able to self stretch with wand properly to reduce pain at superficial PF muscles around the clock. 03/23/24: Pt self stretching with wand; mildly improved PF mobility. 04/27/24: Pain at 4-5 & 7-8 of PF clock. 05/19/24: Pt trained in use of wand to stretch PF. Pain at 4-5, 8 of PF clock. STG Duration 05/08/24 progressing (need to reduce pain) Digital Production Operator Goal (LTG) Decrease pain of Deep PF muscles around the clock with 0-1/10 pain during intercourse . 04/20/24: Pain rated 2-3/10 after PF stretching. LTG Duration 07/17/24 progressing 04/20/24 One Impairment Pt lacks an independent self care HEP. Short Term Goal (STG) Pt will be educated and able to demonstrate improved posturing and transfers to protect her diastasis rectus and perform proper deep breathing for completing urinary voiding without having to strain. 02/28/24: Initiated HEP: deep breathing ex. 05/19/24: Pt educated in proper sit/stand posture & log roll transfer to protect DR. STG Duration 05/08/24 progressed 05/19/24 (need breathing to avoid straining w/voiding) Digital Production Operator Goal (LTG) Pt will be independent in a self care HEP for PF and hip/ core self stretching ex's, core/pelvic stabilization after corrections, and hip ( rot, flex)/trunk (rot) mobility ex's. 04/27/24: HEP: ILU bowel massage. Self anterior pelvis MFR below pubic ramus and groin. LTG Duration 07/17/24 progressed 04/27/24. 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 Today, it appears the PPT of her pelvis in her sitting and standing posture accentuates tightening of Posterior PF; therefore contributing to tightening and coccyx pain with sitting. The pt has mild discomfort of superficial PF ms; discomfort is mostly at deep PF ms (5-6 & 8 of PF clock) that quickly released with STM and use of wand with pt training in use. Posture needs correction. Physical Therapy Plan Frequency and Duration Frequency of Treatment 1x/Week Duration of treatment (weeks) 20 Plan of Care Start Date 02/28/24 Plan of Care End Date 07/17/24 Next Visit Focus/Plan Next Note Type Treatment Note Next Visit Plan Next: Assess pt response to self stretch of pubic region, and I/S in clitoris/vaginal region. Assess response to pt training of proper posturing and transfers to protect her DR. Add: Trunk/hip ext strengthening and hip mobility (rot, flex), and Coccygeal ms stretching internally L side> R side. Cont posture training . Manual: Self stretch with fingers lateral to lateral coccyx (?R). POC: Therapeutic ex: hip/ trunk stretching, core stab w/ DR closure exers. Pt education HEP hip, trunk stretches, DR care; Manual therapy - DR taping, PF stretching, sacral balancing if R innominate anteriorly rotated and sacrum L rotated. Biofeedback with vaginal sensor for PF relaxation awareness when able to tolerated electrode.
--- NOTE | 2024-05-26 11:49 | PT.OTN ---
Current Diagnoses Other female genital prolapse (05/26/24) Physical Therapy Treatment Note PT-OP-A Visit Information Start: 02/20/24 07:28 Freq: Status: Active Protocol: Document 05/26/24 09:59 LRN (Rec: 05/26/24 10:46 LRN [id number]) Out-Patient Physical Therapy Visit Information Visit Information Visit Type Treatment Note Visit Start Time 09:59 Visit Stop Time 10:30 Visit Number 6 Evaluation Information Evaluation Date 02/28/24 Precautions Precautions Diabetes type 1, Back pain since she was 6 months , since childbirth has tailbone pain. PT-OP-B Current Condition Start: 02/20/24 07:28 Freq: Status: Active Protocol: Document 02/28/24 14:37 LRN (Rec: 02/28/24 17:02 LRN [id number]) Current Condition History of Current Condition Onset Date 11/11/2023 Current Complaints Pelvic organ prolapse History of Current Condition Pt is 3.5 month post- diagnosed with pelvic organ prolapse after pushing 5 hrs with 2nd degree tear up into the cervix. States stitches are dissolved and scar was present at 5 wk appt, but she has not had tear checked for healed. Her main complaint is that she has pain with intercourse, mostly with initial insertion. She denies urinary leakage problems initiating a urine stream, but reports she strains to complete voiding. Pt was on hands/knees with childbirth. Tailbone pain with sitting or walking/exerting too much. Dr Muniz said there was a high probability of tailbone cracked with how long she pushed. Natural vaginal childbirth. Prior Treatments and Tests None Developmental History Developmental History Pt with first child and is breast feeding. 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 spouse with no family locally. Insulin dependent diabetes. PT-OP-C Subjective Start: 02/20/24 07:28 Freq: Status: Active Protocol: Document 05/26/24 09:59 LRN (Rec: 05/26/24 10:46 LRN [id number]) OP-PT Subjective Patient Comments Patient Comments Stretching has lessened PF pain. PT-OP-I Pelvic Floor Start: 02/20/24 07:28 Freq: Status: Active Protocol: Document 02/28/24 14:37 LRN (Rec: 02/28/24 17:02 LRN [id number]) Pelvic Floor Assessment Urine Other Urinary Symptoms No urinary leakage. Bowel Other Bowel Symptoms No constipation Bowel Movement Frequency 1 [place] Stool Chart Type 1-7 3 Pelvic Clock Pelvic Clock 12-3 Tenderness Pelvic Clock 3-6 Tenderness Pelvic Clock 6-9 Tenderness Pelvic Clock 9-12 Tenderness Pelvic Clock Other Tenderness: Superficial PF ms: Entire PF clock but mostly 2 , 4 & 8 Deep PF ms: Mostly PF clock 3 -11. Prolapse Cystocele Grade 3 Prolapse Comments Pt Bladder is dropped into 1/2 vaginal opening, but is not a near the opening entry. Deferred assessing for uterine prolapse due to pt tenderness . Perineal Descent Resting Absent Bearing Absent Contraction Ability Voluntary Relaxation Moderate Manual Muscle Testing Left 3 Manual Muscle Testing Right 3 Comments Pelvic Floor Comments Deferred endurance and quick contraction assessment due to pt tenderness. PT-OP-J Posture/Palpation/Skin Start: 02/20/24 07:28 Freq: Status: Active Protocol: Document 02/28/24 14:37 LRN (Rec: 02/28/24 17:02 LRN [id number]) Posture Evaluation Position Standing Head/C-Spine Posture Forward Head T-Spine Posture Increased Kyphosis L-Spine Posture Increased Lordosis Pelvis Posture (L) PSIS Posterior Knee Posture (L) Genu Varus,(R) Genu Varus Comments Posture Comments Posterior L sacral JOYCE and lateral sacral border Palpation Assessment Location ABdomen Palpation Location Abdomen for diastasis rectus and pain. Palpation Findings Tenderness Palpation Details Umbilicus 3 above: 1 finger width (~2.5 cm), shallow at xiphoid process. Umbilicus 2 above: 2 finger widths, shallow Umbilicus 1 above: 2 finger widths Umbilicus Umbilicus: 1 below: 1.5 finger widths Umbilicus: 2 below: .5 finger widths, very shallow Umbilicus: 3 below: closed R leg long in supine Palpation Location R leg long PT-OP-K Range of Motion Start: 02/20/24 07:28 Freq: Status: Active Protocol: Document 02/28/24 14:37 LRN (Rec: 02/28/24 17:02 LRN [id number]) Lumbar Spine Range of Motion Lumbar Spine Active Degrees Testing Position Standing Flexion 100 Extension 25 Rotation Left 45 Rotation Right 45 Lateral Flexion Left 22 Lateral Flexion Right 22 Comments Rotation is with trunk extension Hip Goniometric Range of Motion Hip Right Passive Testing Position Supine Abduction 40 Internal Rotation 25 External Rotation 65 Left Passive Testing Position Supine Abduction 40 Internal Rotation 30 External Rotation 65 PT-OP-M Strength Start: 02/20/24 07:28 Freq: Status: Active Protocol: Document 02/28/24 14:37 LRN (Rec: 02/28/24 17:02 LRN [id number]) Trunk Strength Trunk Manual Muscle Testing Core Stabilization Abdominal doming noted with pt transfers. Hip Strength Hip Manual Muscle Testing Right External Rotation 3 Fair Internal Rotation 4+ Good+ Comments Strength is 5/5 except as indicated above. Hip ext not assessed. Left External Rotation 3 Fair Internal Rotation 4+ Good+ Comments Strength is 5/5 except as indicated above. Hip ext not assessed. PT-OP-Q Treatments Start: 02/20/24 07:28 Freq: Status: Active Protocol: Document 05/26/24 09:59 LRN (Rec: 05/26/24 10:46 LRN [id number]) Therapeutic Exercises Sitting Exercises Miracle ball stretch Sitting Exercise Name L Coccygeal ms Side left Reps/Minutes 3' Comments Cued to roll fwd/bkwd, side<> side Manual Therapy Treatment Soft Tissue Mobilization Coccyx laterally Body Location Boiler Engineer PF externally & Lateral to coccyx Mobilization Type Trigger Point Release Intensity/Depth Moderate Body Position Prone Comments MFR with hip rotation, single & double. I/S pt to do self stretch to tissues distal to Pubic Symphysis in all directions. PF Body Location PF internally around the clock Mobilization Type Myofascial Release,Sustained Pressure Intensity/Depth Moderate Body Position Supine Comments Tender at 8 of PF clock. PT-OP-T Assessment and Plan Start: 02/20/24 07:28 Freq: Status: Active Protocol: Document 05/26/24 09:59 LRN (Rec: 05/26/24 10:46 LRN [id number]) Physical Therapy Assessment Goals Three Impairment Tailbone pain rated 4/10. Short Term Goal (STG) Pt to demonstrate normal pelvic positioning, improve hip mobility (rot, flex) and decrease coccygeal muscle tightness, with 50% less tailbone pain. 04/20/24: Pain rated 2-3/10 after PF stretching. 05/19/24: No pain with immediate sitting, but has it after sitting 45-60+ mimutes. STG Duration 05/08/24 progressing Inspector Precision Assembly Goal (LTG) Improve pelvic stability to decrease tailbone pain with sitting or exertional walking. 05/19/24: Walking more than 2 miles or hills have tailbone pain. LTG Duration 07/17/24 Two Impairment Dyspareunia, pain mostly with initial insertion (3/10) Short Term Goal (STG) Pt will be able to self stretch with wand properly to reduce pain at superficial PF muscles around the clock. 03/23/24: Pt self stretching with wand; mildly improved PF mobility. 04/27/24: Pain at 4-5 & 7-8 of PF clock. 05/19/24: Pt trained in use of wand to stretch PF. Pain at 4-5, 8 of PF clock. 05/26/24: Mild pain at 8 of PF clock, tightness present. STG Duration 05/08/24 progressing (need to reduce pain) Group Home Goal (LTG) Decrease pain of Deep PF muscles around the clock with 0-1/10 pain during intercourse . 04/20/24: Pain rated 2-3/10 after PF stretching. LTG Duration 07/17/24 progressing 04/20/24 One Impairment Pt lacks an independent self care HEP. Short Term Goal (STG) Pt will be educated and able to demonstrate improved posturing and transfers to protect her diastasis rectus and perform proper deep breathing for completing urinary voiding without having to strain. 02/28/24: Initiated HEP: deep breathing ex. 05/19/24: Pt educated in proper sit/stand posture & log roll transfer to protect DR. STG Duration 05/08/24 progressed 05/19/24 (need breathing to avoid straining w/voiding) Inspector Precision Assembly Goal (LTG) Pt will be independent in a self care HEP for PF and hip/ core self stretching ex's, core/pelvic stabilization after corrections, and hip ( rot, flex)/trunk (rot) mobility ex's. 04/27/24: HEP: ILU bowel massage. Self anterior pelvis MFR below pubic ramus and groin. LTG Duration 07/17/24 progressed 04/27/24. Assessment Summary Assessment Pt attends with extreme tightness (probably from hiking yesterday) of PF ms to start, but quickly relaxes with minimal stretch provided, tender at 8 of PF clock. + response to STM in coccygeal ms with reduction of tension at coccyx region. Pt pain with intercourse is much less, no c/o pain after initial episode. Possibly tight anteriorly limiting response to intercourse. Physical Therapy Plan Frequency and Duration Frequency of Treatment 1x/Week Duration of treatment (weeks) 20 Plan of Care Start Date 02/28/24 Plan of Care End Date 07/17/24 Next Visit Focus/Plan Next Note Type Treatment Note Next Visit Plan Next: Assess pt response to self stretch of pubic region, and I/S in clitoris/vaginal region. Assess response to pt training of proper posturing and transfers to protect her DR. Add: Trunk/hip ext strengthening and hip mobility (rot, flex), and Coccygeal ms stretching internally L side> R side. Cont posture training . Manual: Self stretch with fingers lateral to lateral coccyx (?R). POC: Therapeutic ex: hip/ trunk stretching, core stab w/ DR closure exers. Pt education HEP hip, trunk stretches, DR cintron; Manual therapy - taping, PF stretching, sacral balancing if R innominate anteriorly rotated and sacrum L rotated. Biofeedback with vaginal sensor for PF relaxation awareness when able to tolerated electrode.
--- NOTE | 2024-06-08 17:35 | PT.OTN ---
Current Diagnoses Other female genital prolapse (07/06/24) Physical Therapy Treatment Note PT-OP-A Visit Information Start: 02/20/24 07:28 Freq: Status: Active Protocol: Document 07/06/24 17:57 LRN (Rec: 06/08/24 15:21 LRN [id number]) Out-Patient Physical Therapy Visit Information Visit Information Visit Type Treatment Note Visit Start Time 14:35 Visit Stop Time 15:15 Visit Number 7 Evaluation Information Evaluation Date 02/28/24 Precautions Precautions Diabetes type 1, Back pain since she was 6 months , since childbirth has tailbone pain. PT-OP-B Current Condition Start: 02/20/24 07:28 Freq: Status: Active Protocol: Document 02/28/24 14:37 LRN (Rec: 02/28/24 17:02 LRN [id number]) Current Condition History of Current Condition Onset Date 11/11/2023 Current Complaints Pelvic organ prolapse History of Current Condition Pt is 3.5 month post- diagnosed with pelvic organ prolapse after pushing 5 hrs with 2nd degree tear up into the cervix. States stitches are dissolved and scar was present at 5 wk appt, but she has not had tear checked for healed. Her main complaint is that she has pain with intercourse, mostly with initial insertion. She denies urinary leakage problems initiating a urine stream, but reports she strains to complete voiding. Pt was on hands/knees with childbirth. Tailbone pain with sitting or walking/exerting too much. Dr Muniz said there was a high probability of tailbone cracked with how long she pushed. Natural vaginal childbirth. Prior Treatments and Tests None Developmental History Developmental History Pt with first child and is breast feeding. 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 spouse with no family locally. Insulin dependent diabetes. PT-OP-C Subjective Start: 02/20/24 07:28 Freq: Status: Active Protocol: Document 07/06/24 17:57 LRN (Rec: 06/08/24 15:21 LRN [id number]) OP-PT Subjective Patient Comments Patient Comments HAs been stretching her abdomen and hasn't noticed a change, but is less uncomfortable. PT-OP-I Pelvic Floor Start: 02/20/24 07:28 Freq: Status: Active Protocol: Document 02/28/24 14:37 LRN (Rec: 02/28/24 17:02 LRN [id number]) Pelvic Floor Assessment Urine Other Urinary Symptoms No urinary leakage. Bowel Other Bowel Symptoms No constipation Bowel Movement Frequency 1 [place] Stool Chart Type 1-7 3 Pelvic Clock Pelvic Clock 12-3 Tenderness Pelvic Clock 3-6 Tenderness Pelvic Clock 6-9 Tenderness Pelvic Clock 9-12 Tenderness Pelvic Clock Other Tenderness: Superficial PF ms: Entire PF clock but mostly 2 , 4 & 8 Deep PF ms: Mostly PF clock 3 -11. Prolapse Cystocele Grade 3 Prolapse Comments Pt Bladder is dropped into 1/2 vaginal opening, but is not a near the opening entry. Deferred assessing for uterine prolapse due to pt tenderness . Perineal Descent Resting Absent Bearing Absent Contraction Ability Voluntary Relaxation Moderate Manual Muscle Testing Left 3 Manual Muscle Testing Right 3 Comments Pelvic Floor Comments Deferred endurance and quick contraction assessment due to pt tenderness. PT-OP-J Posture/Palpation/Skin Start: 02/20/24 07:28 Freq: Status: Active Protocol: Document 02/28/24 14:37 LRN (Rec: 02/28/24 17:02 LRN [id number]) Posture Evaluation Position Standing Head/C-Spine Posture Forward Head T-Spine Posture Increased Kyphosis L-Spine Posture Increased Lordosis Pelvis Posture (L) PSIS Posterior Knee Posture (L) Genu Varus,(R) Genu Varus Comments Posture Comments Posterior L sacral JOYCE and lateral sacral border Palpation Assessment Location ABdomen Palpation Location Abdomen for diastasis rectus and pain. Palpation Findings Tenderness Palpation Details Umbilicus 3 above: 1 finger width (~2.5 cm), shallow at xiphoid process. Umbilicus 2 above: 2 finger widths, shallow Umbilicus 1 above: 2 finger widths Umbilicus Umbilicus: 1 below: 1.5 finger widths Umbilicus: 2 below: .5 finger widths, very shallow Umbilicus: 3 below: closed R leg long in supine Palpation Location R leg long PT-OP-K Range of Motion Start: 02/20/24 07:28 Freq: Status: Active Protocol: Document 02/28/24 14:37 LRN (Rec: 02/28/24 17:02 LRN [id number]) Lumbar Spine Range of Motion Lumbar Spine Active Degrees Testing Position Standing Flexion 100 Extension 25 Rotation Left 45 Rotation Right 45 Lateral Flexion Left 22 Lateral Flexion Right 22 Comments Rotation is with trunk extension Hip Goniometric Range of Motion Hip Right Passive Testing Position Supine Abduction 40 Internal Rotation 25 External Rotation 65 Left Passive Testing Position Supine Abduction 40 Internal Rotation 30 External Rotation 65 PT-OP-M Strength Start: 02/20/24 07:28 Freq: Status: Active Protocol: Document 02/28/24 14:37 LRN (Rec: 02/28/24 17:02 LRN [id number]) Trunk Strength Trunk Manual Muscle Testing Core Stabilization Abdominal doming noted with pt transfers. Hip Strength Hip Manual Muscle Testing Right External Rotation 3 Fair Internal Rotation 4+ Good+ Comments Strength is 5/5 except as indicated above. Hip ext not assessed. Left External Rotation 3 Fair Internal Rotation 4+ Good+ Comments Strength is 5/5 except as indicated above. Hip ext not assessed. PT-OP-Q Treatments Start: 02/20/24 07:28 Freq: Status: Active Protocol: Document 07/06/24 17:57 LRN (Rec: 06/08/24 15:21 LRN [id number]) Therapeutic Exercises Supine Exercises Piriformis stretch Supine Exercise Name Ankle over knee>KTC Side bilateral Reps/Minutes 30 SH x 2 each Comments Extra time for max carlos stretch DKTC Supine Exercise Name Stretch after AP mobs Reps/Minutes 10 SH x 5 (2') Sitting Exercises Piriformis stretch Sitting Exercise Name I/S pt to do as HEP Side right Reps/Minutes 30 SH x 2 Comments Extra time for max carlos stretch Sitting posture Sitting Exercise Name review training posture Reps/Minutes 4' Other Exercises Wag the Tail Side bilateral Reps/Minutes 5 SH x 15 Comments Wag to R gets greater stretch (on R) Child's Pose Reps/Minutes 30 SH x 2 Comments Stretch felt in lower sacral area to coccyx. Manual Therapy Treatment Soft Tissue Mobilization Coccyx laterally Body Location Horse Doctor PF externally & Lateral to coccyx Mobilization Type Trigger Point Release Intensity/Depth Moderate Body Position Prone Comments MFR with hip rotation, single & double. I/S pt in self stretch to tissues around clitoris/ vaginal region in all directions. Joint Mobilizations Lumbar Joint L4, L5 Spinous process Direction A/P Grade II Body Position Sidelying Reps/Duration 7' Comments L sidelie PT-OP-T Assessment and Plan Start: 02/20/24 07:28 Freq: Status: Active Protocol: Document 07/06/24 17:57 LRN (Rec: 06/08/24 15:21 LRN [id number]) Physical Therapy Assessment Goals Three Impairment Tailbone pain rated 4/10. Short Term Goal (STG) Pt to demonstrate normal pelvic positioning, improve hip mobility (rot, flex) and decrease coccygeal muscle tightness, with 50% less tailbone pain. 04/20/24: Pain rated 2-3/10 after PF stretching. 05/19/24: No pain with immediate sitting, but has it after sitting 45-60+ mimutes. STG Duration 05/08/24 progressing Ancillary Services Manager Therapy Goal (LTG) Improve pelvic stability to decrease tailbone pain with sitting or exertional walking. 05/19/24: Walking more than 2 miles or hills have tailbone pain. LTG Duration 07/17/24 Two Impairment Dyspareunia, pain mostly with initial insertion (3/10) Short Term Goal (STG) Pt will be able to self stretch with wand properly to reduce pain at superficial PF muscles around the clock. 03/23/24: Pt self stretching with wand; mildly improved PF mobility. 04/27/24: Pain at 4-5 & 7-8 of PF clock. 05/19/24: Pt trained in use of wand to stretch PF. Pain at 4-5, 8 of PF clock. 05/26/24: Mild pain at 8 of PF clock, tightness present. STG Duration 05/08/24 progressing (need to reduce pain) Correction Goal (LTG) Decrease pain of Deep PF muscles around the clock with 0-1/10 pain during intercourse . 04/20/24: Pain rated 2-3/10 after PF stretching. LTG Duration 07/17/24 progressing 04/20/24 One Impairment Pt lacks an independent self care HEP. Short Term Goal (STG) Pt will be educated and able to demonstrate improved posturing and transfers to protect her diastasis rectus and perform proper deep breathing for completing urinary voiding without having to strain. 02/28/24: Initiated HEP: deep breathing ex. 05/19/24: Pt educated in proper sit/stand posture & log roll transfer to protect DR. 06/08/24: Pt demonstrating improved posturing as her awareness has improved. STG Duration 05/08/24 progressed 06/08/24 (need breathing to avoid straining w/voiding) Ancillary Services Manager Therapy Goal (LTG) Pt will be independent in a self care HEP for PF and hip/ core self stretching ex's, core/pelvic stabilization after corrections, and hip ( rot, flex)/trunk (rot) mobility ex's. 04/27/24: HEP: ILU bowel massage. Self anterior pelvis MFR below pubic ramus and groin. LTG Duration 07/17/24 progressed 04/27/24. Assessment Summary Assessment Today, pt reporting + response to self stretch, not wanting PT MFR to clitoris/vulvar area , feeling she can do it on her own as she is able to do her own pubic STM. Improved symmetry of soft tissue on lateral sides of coccyx; the R side is tighter than L side, stretch most felt with Wag the Tail stretch. Physical Therapy Plan Frequency and Duration Frequency of Treatment 1x/Week Duration of treatment (weeks) 20 Plan of Care Start Date 02/28/24 Plan of Care End Date 07/17/24 Next Visit Focus/Plan Next Note Type Treatment Note Next Visit Plan Next: Issue HEP: Piriformis stretch (sup, sit). Assess response to pt training of proper posturing and transfers to protect her DR. Add: Trunk/hip ext strengthening and hip mobility (flex), and Coccygeal ms stretching internally L side>R side. Cont posture training. Manual: Self stretch with fingers lateral to lateral coccyx (?R). POC: Therapeutic ex: hip/ trunk stretching, core stab w/ DR closure exers. Pt education HEP hip, trunk stretches, DR cintron; Manual therapy - taping, PF stretching, sacral balancing if R innominate anteriorly rotated and sacrum L rotated. Biofeedback with vaginal sensor for PF relaxation awareness when able to tolerated electrode.
--- NOTE | 2024-06-15 18:09 | PT.OTN ---
Current Diagnoses Other female genital prolapse (06/15/24) Physical Therapy Treatment Note PT-OP-A Visit Information Start: 02/20/24 07:28 Freq: Status: Active Protocol: Document 06/15/24 14:36 LRN (Rec: 06/15/24 15:19 LRN [id number]) Out-Patient Physical Therapy Visit Information Visit Information Visit Start Time 14:36 Visit Stop Time 15:16 Visit Number 8 Evaluation Information Evaluation Date 02/28/24 Precautions Precautions Diabetes type 1, Back pain since she was 6 months , since childbirth has tailbone pain. PT-OP-B Current Condition Start: 02/20/24 07:28 Freq: Status: Active Protocol: Document 02/28/24 14:37 LRN (Rec: 02/28/24 17:02 LRN [id number]) Current Condition History of Current Condition Onset Date 11/11/2023 Current Complaints Pelvic organ prolapse History of Current Condition Pt is 3.5 month post- diagnosed with pelvic organ prolapse after pushing 5 hrs with 2nd degree tear up into the cervix. States stitches are dissolved and scar was present at 5 wk appt, but she has not had tear checked for healed. Her main complaint is that she has pain with intercourse, mostly with initial insertion. She denies urinary leakage problems initiating a urine stream, but reports she strains to complete voiding. Pt was on hands/knees with childbirth. Tailbone pain with sitting or walking/exerting too much. Dr Muniz said there was a high probability of tailbone cracked with how long she pushed. Natural vaginal childbirth. Prior Treatments and Tests None Developmental History Developmental History Pt with first child and is breast feeding. 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 spouse with no family locally. Insulin dependent diabetes. PT-OP-C Subjective Start: 02/20/24 07:28 Freq: Status: Active Protocol: Document 06/15/24 14:36 LRN (Rec: 06/15/24 15:19 LRN [id number]) OP-PT Subjective Patient Comments Patient Comments [place] pose doing more, so is getting better. Working on posture. PT-OP-I Pelvic Floor Start: 02/20/24 07:28 Freq: Status: Active Protocol: Document 02/28/24 14:37 LRN (Rec: 02/28/24 17:02 LRN [id number]) Pelvic Floor Assessment Urine Other Urinary Symptoms No urinary leakage. Bowel Other Bowel Symptoms No constipation Bowel Movement Frequency 1 [place] Stool Chart Type 1-7 3 Pelvic Clock Pelvic Clock 12-3 Tenderness Pelvic Clock 3-6 Tenderness Pelvic Clock 6-9 Tenderness Pelvic Clock 9-12 Tenderness Pelvic Clock Other Tenderness: Superficial PF ms: Entire PF clock but mostly 2 , 4 & 8 Deep PF ms: Mostly PF clock 3 -11. Prolapse Cystocele Grade 3 Prolapse Comments Pt Bladder is dropped into 1/2 vaginal opening, but is not a near the opening entry. Deferred assessing for uterine prolapse due to pt tenderness . Perineal Descent Resting Absent Bearing Absent Contraction Ability Voluntary Relaxation Moderate Manual Muscle Testing Left 3 Manual Muscle Testing Right 3 Comments Pelvic Floor Comments Deferred endurance and quick contraction assessment due to pt tenderness. PT-OP-J Posture/Palpation/Skin Start: 02/20/24 07:28 Freq: Status: Active Protocol: Document 02/28/24 14:37 LRN (Rec: 02/28/24 17:02 LRN [id number]) Posture Evaluation Position Standing Head/C-Spine Posture Forward Head T-Spine Posture Increased Kyphosis L-Spine Posture Increased Lordosis Pelvis Posture (L) PSIS Posterior Knee Posture (L) Genu Varus,(R) Genu Varus Comments Posture Comments Posterior L sacral JOYCE and lateral sacral border Palpation Assessment Location ABdomen Palpation Location Abdomen for diastasis rectus and pain. Palpation Findings Tenderness Palpation Details Umbilicus 3 above: 1 finger width (~2.5 cm), shallow at xiphoid process. Umbilicus 2 above: 2 finger widths, shallow Umbilicus 1 above: 2 finger widths Umbilicus Umbilicus: 1 below: 1.5 finger widths Umbilicus: 2 below: .5 finger widths, very shallow Umbilicus: 3 below: closed R leg long in supine Palpation Location R leg long PT-OP-K Range of Motion Start: 02/20/24 07:28 Freq: Status: Active Protocol: Document 02/28/24 14:37 LRN (Rec: 02/28/24 17:02 LRN [id number]) Lumbar Spine Range of Motion Lumbar Spine Active Degrees Testing Position Standing Flexion 100 Extension 25 Rotation Left 45 Rotation Right 45 Lateral Flexion Left 22 Lateral Flexion Right 22 Comments Rotation is with trunk extension Hip Goniometric Range of Motion Hip Right Passive Testing Position Supine Abduction 40 Internal Rotation 25 External Rotation 65 Left Passive Testing Position Supine Abduction 40 Internal Rotation 30 External Rotation 65 PT-OP-M Strength Start: 02/20/24 07:28 Freq: Status: Active Protocol: Document 02/28/24 14:37 LRN (Rec: 02/28/24 17:02 LRN [id number]) Trunk Strength Trunk Manual Muscle Testing Core Stabilization Abdominal doming noted with pt transfers. Hip Strength Hip Manual Muscle Testing Right External Rotation 3 Fair Internal Rotation 4+ Good+ Comments Strength is 5/5 except as indicated above. Hip ext not assessed. Left External Rotation 3 Fair Internal Rotation 4+ Good+ Comments Strength is 5/5 except as indicated above. Hip ext not assessed. PT-OP-Q Treatments Start: 02/20/24 07:28 Freq: Status: Active Protocol: Document 06/15/24 14:36 LRN (Rec: 06/15/24 15:19 LRN [id number]) Therapeutic Exercises Prone Exercises Hip Ext Side bilateral Reps/Minutes 15x Sitting Exercises Hip ER Side bilateral Reps/Minutes 10x Noodle stretch Sitting Exercise Name L Coccygeal ms Side left Reps/Minutes 2' Piriformis stretch Sitting Exercise Name I/S pt to do as HEP Side bilateral Reps/Minutes 30 SH x 2 Comments Extra time for max carlos stretch Miracle ball stretch Sitting Exercise Name L Coccygeal ms Side left Reps/Minutes 3' Comments Cued to roll fwd/bkwd, side<> side Other Exercises Child's Pose Other Exercise Name Leaning buttocks towards L foot > R foot Reps/Minutes 30 SH x 3 Comments Stretch felt in lower sacral area to coccyx. Manual Therapy Treatment Consent Patient gave verbal consent for manual No treatment Soft Tissue Mobilization Sacrum Body Location L JOYCE for L rotation correction Mobilization Type Sustained Pressure Intensity/Depth Moderate Body Position Prone Coccyx laterally Body Location Car Unloader PF externally & Lateral to coccyx Mobilization Type Strumming,Trigger Point Release Intensity/Depth Moderate Body Position Prone Comments MFR with hip rotation, single & double. Self-Care/Home Management Treatment Activities Self-Care/Home Management Activities Reviewed and issued HEP: Sitting Piriformis stretch & in [place] Pose, supine w/ankle crossed over knee > KTC, Lateral hip stretch, and Child 's pose for stretch to L lateral coccyx. PT-OP-T Assessment and Plan Start: 02/20/24 07:28 Freq: Status: Active Protocol: Document 06/15/24 14:36 LRN (Rec: 06/15/24 15:19 LRN [id number]) Physical Therapy Assessment Goals Three Impairment Tailbone pain rated 4/10. Short Term Goal (STG) Pt to demonstrate normal pelvic positioning, improve hip mobility (rot, flex) and decrease coccygeal muscle tightness, with 50% less tailbone pain. 04/20/24: Pain rated 2-3/10 after PF stretching. 05/19/24: No pain with immediate sitting, but has it after sitting 45-60+ mimutes. STG Duration 05/08/24 progressing Jail Goal (LTG) Improve pelvic stability to decrease tailbone pain with sitting or exertional walking. 05/19/24: Walking more than 2 miles or hills have tailbone pain. LTG Duration 07/17/24 Two Impairment Dyspareunia, pain mostly with initial insertion (3/10) Short Term Goal (STG) Pt will be able to self stretch with wand properly to reduce pain at superficial PF muscles around the clock. 03/23/24: Pt self stretching with wand; mildly improved PF mobility. 04/27/24: Pain at 4-5 & 7-8 of PF clock. 05/19/24: Pt trained in use of wand to stretch PF. Pain at 4-5, 8 of PF clock. 05/26/24: Mild pain at 8 of PF clock, tightness present. STG Duration 05/08/24 progressing (need to reduce pain) Supervisor Dental Laboratory Goal (LTG) Decrease pain of Deep PF muscles around the clock with 0-1/10 pain during intercourse . 04/20/24: Pain rated 2-3/10 after PF stretching. LTG Duration 07/17/24 progressing 04/20/24 One Impairment Pt lacks an independent self care HEP. Short Term Goal (STG) Pt will be educated and able to demonstrate improved posturing and transfers to protect her diastasis rectus and perform proper deep breathing for completing urinary voiding without having to strain. 02/28/24: Initiated HEP: deep breathing ex. 02/04/25: Pt educated in proper sit/stand posture & log roll transfer to protect DR. 06/08/24: Pt demonstrating improved posturing as her awareness has improved. STG Duration 05/08/24 progressed 06/08/24 (need breathing to avoid straining w/voiding) Supervisor Dental Laboratory Goal (LTG) Pt will be independent in a self care HEP for PF and hip/ core self stretching ex's, core/pelvic stabilization after corrections, and hip ( rot, flex)/trunk (rot) mobility ex's. 04/27/24: HEP: ILU bowel massage. Self anterior pelvis MFR below pubic ramus and groin. 06/15/24: HEP: Sitting Piriformis stretch & in [place] Pose, supine w/ankle crossed over knee > KTC, Lateral hip stretch, and Child's pose for stretch to L lateral coccyx. LTG Duration 07/17/24 progressed 06/15/24. Assessment Summary Assessment 23 yo female with dyspareunia intially on insertion due to tightness of PF, also with hip /trunk tightness, pelvic positional dys (anter rot R innom/L manufacturing millwright rot; & rot sacrum). Today she responded well to stretching of her coccygeal ms externally with mostly normalization of ms tone from left to right. Expect if pt is able to consistently stretch Piriformis and do self MFR to clitoris/vulvar area, and avoid straining with BMs she will progress quickly. She is doing well with self postural corrections Physical Therapy Plan Frequency and Duration Frequency of Treatment 1x/Week Duration of treatment (weeks) 20 Plan of Care Start Date 02/28/24 Plan of Care End Date 07/17/24 Next Visit Focus/Plan Next Note Type Treatment Note Next Visit Plan Next: Assess response to transfers to protect her DR. Add to HEP: Trunk/hip ext strengthening and hip mobility (flex). Assess pt progres with self coccygeal ms stretching internally L side>R side. ?Manual (if pt not yet purchase Miracle Ball): Self stretch with fingers lateral to lateral coccyx (?R). Biofeedback with vaginal sensor for PF relaxation awareness when able to tolerated electrode. POC: Therapeutic ex: hip/ trunk stretching, core stab w/ DR closure exers. Pt education HEP hip, trunk stretches, DR care; Manual therapy - taping, PF stretching, sacral balancing if R innominate anteriorly rotated and sacrum L rotated.
--- NOTE | 2024-07-06 16:53 | PT.OTN ---
Current Diagnoses Other female genital prolapse (07/06/24) Physical Therapy Treatment Note PT-OP-A Visit Information Start: 02/20/24 07:28 Freq: Status: Active Protocol: Document 07/06/24 13:03 LRN (Rec: 07/06/24 13:44 LRN Laptop) Out-Patient Physical Therapy Visit Information Visit Information Visit Type Treatment Note Visit Note 12 visits as of 03/31/24 Visit Start Time 13:03 Visit Stop Time 13:43 Visit Number 10/24 Evaluation Information Evaluation Date 02/28/24 Precautions Precautions Diabetes type 1, Back pain since she was 6 months , since childbirth has tailbone pain. PT-OP-B Current Condition Start: 02/20/24 07:28 Freq: Status: Active Protocol: Document 02/28/24 14:37 LRN (Rec: 02/28/24 17:02 LRN [id number]) Current Condition History of Current Condition Onset Date 11/11/2023 Current Complaints Pelvic organ prolapse History of Current Condition Pt is 3.5 month post- diagnosed with pelvic organ prolapse after pushing 5 hrs with 2nd degree tear up into the cervix. States stitches are dissolved and scar was present at 5 wk appt, but she has not had tear checked for healed. Her main complaint is that she has pain with intercourse, mostly with initial insertion. She denies urinary leakage problems initiating a urine stream, but reports she strains to complete voiding. Pt was on hands/knees with childbirth. Tailbone pain with sitting or walking/exerting too much. Dr Muniz said there was a high probability of tailbone cracked with how long she pushed. Natural vaginal childbirth. Prior Treatments and Tests None Developmental History Developmental History Pt with first child and is breast feeding. 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 spouse with no family locally. Insulin dependent diabetes. PT-OP-C Subjective Start: 02/20/24 07:28 Freq: Status: Active Protocol: Document 07/06/24 13:03 LRN (Rec: 07/06/24 13:44 LRN Laptop) OP-PT Subjective Patient Comments Patient Comments Had more tailbone pain, possibly from holding son on hip. Stretches helped. Has been working on hip strengthening. PT-OP-I Pelvic Floor Start: 02/20/24 07:28 Freq: Status: Active Protocol: Document 02/28/24 14:37 LRN (Rec: 02/28/24 17:02 LRN [id number]) Pelvic Floor Assessment Urine Other Urinary Symptoms No urinary leakage. Bowel Other Bowel Symptoms No constipation Bowel Movement Frequency 1 [place] Stool Chart Type 1-7 3 Pelvic Clock Pelvic Clock 12-3 Tenderness Pelvic Clock 3-6 Tenderness Pelvic Clock 6-9 Tenderness Pelvic Clock 9-12 Tenderness Pelvic Clock Other Tenderness: Superficial PF ms: Entire PF clock but mostly 2 , 4 & 8 Deep PF ms: Mostly PF clock 3 -11. Prolapse Cystocele Grade 3 Prolapse Comments Pt Bladder is dropped into 1/2 vaginal opening, but is not a near the opening entry. Deferred assessing for uterine prolapse due to pt tenderness . Perineal Descent Resting Absent Bearing Absent Contraction Ability Voluntary Relaxation Moderate Manual Muscle Testing Left 3 Manual Muscle Testing Right 3 Comments Pelvic Floor Comments Deferred endurance and quick contraction assessment due to pt tenderness. PT-OP-J Posture/Palpation/Skin Start: 02/20/24 07:28 Freq: Status: Active Protocol: Document 02/28/24 14:37 LRN (Rec: 02/28/24 17:02 LRN [id number]) Posture Evaluation Position Standing Head/C-Spine Posture Forward Head T-Spine Posture Increased Kyphosis L-Spine Posture Increased Lordosis Pelvis Posture (L) PSIS Posterior Knee Posture (L) Genu Varus,(R) Genu Varus Comments Posture Comments Posterior L sacral JOYCE and lateral sacral border Palpation Assessment Location ABdomen Palpation Location Abdomen for diastasis rectus and pain. Palpation Findings Tenderness Palpation Details Umbilicus 3 above: 1 finger width (~2.5 cm), shallow at xiphoid process. Umbilicus 2 above: 2 finger widths, shallow Umbilicus 1 above: 2 finger widths Umbilicus Umbilicus: 1 below: 1.5 finger widths Umbilicus: 2 below: .5 finger widths, very shallow Umbilicus: 3 below: closed R leg long in supine Palpation Location R leg long PT-OP-K Range of Motion Start: 02/20/24 07:28 Freq: Status: Active Protocol: Document 02/28/24 14:37 LRN (Rec: 02/28/24 17:02 LRN [id number]) Lumbar Spine Range of Motion Lumbar Spine Active Degrees Testing Position Standing Flexion 100 Extension 25 Rotation Left 45 Rotation Right 45 Lateral Flexion Left 22 Lateral Flexion Right 22 Comments Rotation is with trunk extension Hip Goniometric Range of Motion Hip Right Passive Testing Position Supine Abduction 40 Internal Rotation 25 External Rotation 65 Left Passive Testing Position Supine Abduction 40 Internal Rotation 30 External Rotation 65 PT-OP-M Strength Start: 02/20/24 07:28 Freq: Status: Active Protocol: Document 02/28/24 14:37 LRN (Rec: 02/28/24 17:02 LRN [id number]) Trunk Strength Trunk Manual Muscle Testing Core Stabilization Abdominal doming noted with pt transfers. Hip Strength Hip Manual Muscle Testing Right External Rotation 3 Fair Internal Rotation 4+ Good+ Comments Strength is 5/5 except as indicated above. Hip ext not assessed. Left External Rotation 3 Fair Internal Rotation 4+ Good+ Comments Strength is 5/5 except as indicated above. Hip ext not assessed. PT-OP-Q Treatments Start: 02/20/24 07:28 Freq: Status: Active Protocol: Document 07/06/24 13:03 LRN (Rec: 07/06/24 13:44 LRN Laptop) Therapeutic Exercises Supine Exercises Piriformis stretch Supine Exercise Name Ankle over knee>KTC Side bilateral Reps/Minutes 30 SH x 2 each Comments Extra time for max carlos stretch DKTC Supine Exercise Name Stretch after AP mobs Reps/Minutes 20 SH x 3 Happy Baby Pose Reps/Minutes 2' Prone Exercises Hip Ext Side bilateral Reps/Minutes 15x 2 Comments Needed phys cuing to keep hip from ER on lift. Sidelying Exercises Clamshell Side bilateral Reps/Minutes 15x 2 Comments Weaker in R hip Therapeutic Activity Therapeutic Activity Body mechanics Name Post posture & body mechanics training Reps/Minutes 3' Manual Therapy Treatment Soft Tissue Mobilization Coccyx laterally Body Location Door Glass Installer R PF externally & L Lateral Sacrum Mobilization Type Strumming,Trigger Point Release Intensity/Depth Moderate Body Position Prone Self-Care/Home Management Treatment Education Other Education Educated pt in body mechanics for carrying toddler to minimize inpact on posture. Discussued use of back pack and body mechanics of gettting son into backpack vs carrying son on one hip for daily activities. Activities Self-Care/Home Management Activities Issued & reviewed HEP: Clamshell & hip ext strengthening, DKTC stretch. Issued and reviewed handout: posture & body mechanics. PT-OP-T Assessment and Plan Start: 02/20/24 07:28 Freq: Status: Active Protocol: Document 07/06/24 13:03 LRN (Rec: 07/06/24 13:44 LRN Laptop) Physical Therapy Assessment Goals Three Impairment Tailbone pain rated 4/10. Short Term Goal (STG) Pt to demonstrate normal pelvic positioning, improve hip mobility (rot, flex) and decrease coccygeal muscle tightness, with 50% less tailbone pain. 04/20/24: Pain rated 2-3/10 after PF stretching. 05/19/24: No pain with immediate sitting, but has it after sitting 45-60+ mimutes. STG Duration 05/08/24 progressing Prison Goal (LTG) Improve pelvic stability to decrease tailbone pain with sitting or exertional walking. 05/19/24: Walking more than 2 miles or hills have tailbone pain. LTG Duration 07/17/24 Two Impairment Dyspareunia, pain mostly with initial insertion (3/10) Short Term Goal (STG) Pt will be able to self stretch with wand properly to reduce pain at superficial PF muscles around the clock. 03/23/24: Pt self stretching with wand; mildly improved PF mobility. 04/27/24: Pain at 4-5 & 7-8 of PF clock. 05/19/24: Pt trained in use of wand to stretch PF. Pain at 4-5, 8 of PF clock. 05/26/24: Mild pain at 8 of PF clock, tightness present. STG Duration 05/08/24 progressing (need to reduce pain) Prison Goal (LTG) Decrease pain of Deep PF muscles around the clock with 0-1/10 pain during intercourse . 04/20/24: Pain rated 2-3/10 after PF stretching. LTG Duration 07/17/24 progressing 04/20/24 One Impairment Pt lacks an independent self care HEP. Short Term Goal (STG) Pt will be educated and able to demonstrate improved posturing and transfers to protect her diastasis rectus and perform proper deep breathing for completing urinary voiding without having to strain. 02/28/24: Initiated HEP: deep breathing ex. 05/19/24: Pt educated in proper sit/stand posture & log roll transfer to protect DR. 06/08/24: Pt demonstrating improved posturing as her awareness has improved. 07/06/24: Educated with handout for posture & body mechanics. STG Duration 05/08/24 progressed 07/06/24 (need breathing to avoid straining w/voiding) Prison Goal (LTG) Pt will be independent in a self care HEP for PF and hip/ core self stretching ex's, core/pelvic stabilization after corrections, and hip ( rot, flex)/trunk (rot) mobility ex's. 04/27/24: HEP: ILU bowel massage. Self anterior pelvis MFR below pubic ramus and groin. 06/15/24: HEP: Sitting Piriformis stretch & in [place] Pose, supine w/ankle crossed over knee > KTC, Lateral hip stretch, and Child's pose for stretch to L lateral coccyx. 07/06/24: HEP: Clamshell & hip ext strengthening, DKTC stretch. LTG Duration 07/17/24 progressed 07/06/24. 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 Today, w/external PF stretching, she had active trP at L lateral sacral border and R coccygeal ms tenderness that released fairly quickly, although pt distracted by baby who was in attendance durint therapy. There is weakness in R hip ER ( clamshell) and hip ext (ext leg lifts) with mild cramping in R hip with ext starting after 2nd set of 15 reps. The pt has been improving with a decrease in her level of pain from 4/10 to 3/10 and no pain with immediate sitting. The pt's attendance has been sporadic due to scheduling difficulties; therefore extension of her plan of care is needed. The pt will benefit from skilled physical therapy to continue working towards achievin the goals above. Physical Therapy Plan Frequency and Duration Frequency of Treatment 1x/Week Duration of treatment (weeks) 4 Plan of Care Start Date 07/06/24 Plan of Care End Date 07/29/24 Next Visit Focus/Plan Next Note Type Treatment Note Next Visit Plan Next: Assess response to transfers to protect her DR. Add to HEP: trunk strengthening (DR protection) Assess pt progress with self coccygeal ms stretching internally L side>R side. ?Manual (if pt not yet purchase Miracle Ball): Self stretch with fingers lateral to lateral coccyx (?R). Biofeedback with vaginal sensor for PF relaxation awareness when able to tolerated electrode. POC: Therapeutic ex: hip/ trunk stretching, core stab w/ DR closure exers. Pt education HEP hip, trunk stretches, DR care; Manual therapy - DR taping, PF stretching, sacral balancing if R innominate anteriorly rotated and sacrum L rotated.
--- NOTE | 2024-07-09 15:23 | PT.OPPN ---
Current Diagnoses Other female genital prolapse (07/06/24) Physical Therapy Progress Note PT-OP-A Visit Information Start: 02/20/24 07:28 Freq: Status: Active Protocol: Document 07/06/24 13:03 LRN (Rec: 07/06/24 13:44 LRN Laptop) Out-Patient Physical Therapy Visit Information Visit Information Visit Type Treatment Note Visit Note 12 visits as of 03/31/24 Visit Start Time 13:03 Visit Stop Time 13:43 Visit Number 10/24 Evaluation Information Evaluation Date 02/28/24 Precautions Precautions Diabetes type 1, Back pain since she was 6 months , since childbirth has tailbone pain. PT-OP-B Current Condition Start: 02/20/24 07:28 Freq: Status: Active Protocol: Document 02/28/24 14:37 LRN (Rec: 02/28/24 17:02 LRN [id number]) Current Condition History of Current Condition Onset Date 11/11/2023 Current Complaints Pelvic organ prolapse History of Current Condition Pt is 3.5 month post- diagnosed with pelvic organ prolapse after pushing 5 hrs with 2nd degree tear up into the cervix. States stitches are dissolved and scar was present at 5 wk appt, but she has not had tear checked for healed. Her main complaint is that she has pain with intercourse, mostly with initial insertion. She denies urinary leakage problems initiating a urine stream, but reports she strains to complete voiding. Pt was on hands/knees with childbirth. Tailbone pain with sitting or walking/exerting too much. Dr Muniz said there was a high probability of tailbone cracked with how long she pushed. Natural vaginal childbirth. Prior Treatments and Tests None Developmental History Developmental History Pt with first child and is breast feeding. 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 spouse with no family locally. Insulin dependent diabetes. PT-OP-C Subjective Start: 02/20/24 07:28 Freq: Status: Active Protocol: Document 07/06/24 13:03 LRN (Rec: 07/06/24 13:44 LRN Laptop) OP-PT Subjective Patient Comments Patient Comments Had more tailbone pain, possibly from holding son on hip. Stretches helped. Has been working on hip strengthening. PT-OP-I Pelvic Floor Start: 02/20/24 07:28 Freq: Status: Active Protocol: Document 02/28/24 14:37 LRN (Rec: 02/28/24 17:02 LRN [id number]) Pelvic Floor Assessment Urine Other Urinary Symptoms No urinary leakage. Bowel Other Bowel Symptoms No constipation Bowel Movement Frequency 1 [place] Stool Chart Type 1-7 3 Pelvic Clock Pelvic Clock 12-3 Tenderness Pelvic Clock 3-6 Tenderness Pelvic Clock 6-9 Tenderness Pelvic Clock 9-12 Tenderness Pelvic Clock Other Tenderness: Superficial PF ms: Entire PF clock but mostly 2 , 4 & 8 Deep PF ms: Mostly PF clock 3 -11. Prolapse Cystocele Grade 3 Prolapse Comments Pt Bladder is dropped into 1/2 vaginal opening, but is not a near the opening entry. Deferred assessing for uterine prolapse due to pt tenderness . Perineal Descent Resting Absent Bearing Absent Contraction Ability Voluntary Relaxation Moderate Manual Muscle Testing Left 3 Manual Muscle Testing Right 3 Comments Pelvic Floor Comments Deferred endurance and quick contraction assessment due to pt tenderness. PT-OP-J Posture/Palpation/Skin Start: 02/20/24 07:28 Freq: Status: Active Protocol: Document 02/28/24 14:37 LRN (Rec: 02/28/24 17:02 LRN [id number]) Posture Evaluation Position Standing Head/C-Spine Posture Forward Head T-Spine Posture Increased Kyphosis L-Spine Posture Increased Lordosis Pelvis Posture (L) PSIS Posterior Knee Posture (L) Genu Varus,(R) Genu Varus Comments Posture Comments Posterior L sacral JOYCE and lateral sacral border Palpation Assessment Location ABdomen Palpation Location Abdomen for diastasis rectus and pain. Palpation Findings Tenderness Palpation Details Umbilicus 3 above: 1 finger width (~2.5 cm), shallow at xiphoid process. Umbilicus 2 above: 2 finger widths, shallow Umbilicus 1 above: 2 finger widths Umbilicus Umbilicus: 1 below: 1.5 finger widths Umbilicus: 2 below: .5 finger widths, very shallow Umbilicus: 3 below: closed R leg long in supine Palpation Location R leg long PT-OP-K Range of Motion Start: 02/20/24 07:28 Freq: Status: Active Protocol: Document 02/28/24 14:37 LRN (Rec: 02/28/24 17:02 LRN [id number]) Lumbar Spine Range of Motion Lumbar Spine Active Degrees Testing Position Standing Flexion 100 Extension 25 Rotation Left 45 Rotation Right 45 Lateral Flexion Left 22 Lateral Flexion Right 22 Comments Rotation is with trunk extension Hip Goniometric Range of Motion Hip Measured in Degrees Right Passive Testing Position Supine Abduction 40 Internal Rotation 25 External Rotation 65 Left Passive Testing Position Supine Abduction 40 Internal Rotation 30 External Rotation 65 PT-OP-M Strength Start: 02/20/24 07:28 Freq: Status: Active Protocol: Document 02/28/24 14:37 LRN (Rec: 02/28/24 17:02 LRN [id number]) Trunk Strength Trunk Manual Muscle Testing Core Stabilization Abdominal doming noted with pt transfers. Hip Strength Hip Manual Muscle Testing Right External Rotation 3 Fair Internal Rotation 4+ Good+ Comments Strength is 5/5 except as indicated above. Hip ext not assessed. Left External Rotation 3 Fair Internal Rotation 4+ Good+ Comments Strength is 5/5 except as indicated above. Hip ext not assessed. PT-OP-T Assessment and Plan Start: 02/20/24 07:28 Freq: Status: Active Protocol: Document 07/06/24 13:03 LRN (Rec: 07/06/24 13:44 LRN Laptop) Physical Therapy Assessment Goals Three Impairment Tailbone pain rated 4/10. Short Term Goal (STG) Pt to demonstrate normal pelvic positioning, improve hip mobility (rot, flex) and decrease coccygeal muscle tightness, with 50% less tailbone pain. 04/20/24: Pain rated 2-3/10 after PF stretching. 05/19/24: No pain with immediate sitting, but has it after sitting 45-60+ mimutes. STG Duration 05/08/24 progressing [facility] Goal (LTG) Improve pelvic stability to decrease tailbone pain with sitting or exertional walking. 05/19/24: Walking more than 2 miles or hills have tailbone pain. LTG Duration 07/17/24 Two Impairment Dyspareunia, pain mostly with initial insertion (3/10) Short Term Goal (STG) Pt will be able to self stretch with wand properly to reduce pain at superficial PF muscles around the clock. 03/23/24: Pt self stretching with wand; mildly improved PF mobility. 04/27/24: Pain at 4-5 & 7-8 of PF clock. 05/19/24: Pt trained in use of wand to stretch PF. Pain at 4-5, 8 of PF clock. 05/26/24: Mild pain at 8 of PF clock, tightness present. STG Duration 05/08/24 progressing (need to reduce pain) [facility] Goal (LTG) Decrease pain of Deep PF muscles around the clock with 0-1/10 pain during intercourse . 04/20/24: Pain rated 2-3/10 after PF stretching. LTG Duration 07/17/24 progressing 04/20/24 One Impairment Pt lacks an independent self care HEP. Short Term Goal (STG) Pt will be educated and able to demonstrate improved posturing and transfers to protect her diastasis rectus and perform proper deep breathing for completing urinary voiding without having to strain. 02/28/24: Initiated HEP: deep breathing ex. 05/19/24: Pt educated in proper sit/stand posture & log roll transfer to protect DR. 06/08/24: Pt demonstrating improved posturing as her awareness has improved. 07/06/24: Educated with handout for posture & body mechanics. STG Duration 05/08/24 progressed 07/06/24 (need breathing to avoid straining w/voiding) [facility] Goal (LTG) Pt will be independent in a self care HEP for PF and hip/ core self stretching ex's, core/pelvic stabilization after corrections, and hip ( rot, flex)/trunk (rot) mobility ex's. 04/27/24: HEP: ILU bowel massage. Self anterior pelvis MFR below pubic ramus and groin. 06/15/24: HEP: Sitting Piriformis stretch & in [place] Pose, supine w/ankle crossed over knee > KTC, Lateral hip stretch, and Child's pose for stretch to L lateral coccyx. 07/06/24: HEP: Clamshell & hip ext strengthening, DKTC stretch. LTG Duration 07/17/24 progressed 07/06/24. 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 Today, w/external PF stretching, she had active trP at L lateral sacral border and R coccygeal ms tenderness that released fairly quickly, although pt distracted by baby who was in attendance durint therapy. There is weakness in R hip ER ( clamshell) and hip ext (ext leg lifts) with mild cramping in R hip with ext starting after 2nd set of 15 reps. The pt has been improving with a decrease in her level of pain from 4/10 to 3/10 and no pain with immediate sitting. The pt's attendance has been sporadic due to scheduling difficulties; therefore extension of her plan of care is needed. The pt will benefit from skilled physical therapy to continue working towards achievin the goals above. Physical Therapy Plan Frequency and Duration Frequency of Treatment 1x/Week Duration of treatment (weeks) 4 Plan of Care Start Date 07/06/24 Plan of Care End Date 07/29/24 Next Visit Focus/Plan Next Note Type Treatment Note Next Visit Plan Next: Assess response to transfers to protect her DR. Add to HEP: trunk strengthening (DR protection) Assess pt progress with self coccygeal ms stretching internally L side>R side. ?Manual (if pt not yet purchase Miracle Ball): Self stretch with fingers lateral to lateral coccyx (?R). Biofeedback with vaginal sensor for PF relaxation awareness when able to tolerated electrode. POC: Therapeutic ex: hip/ trunk stretching, core stab w/ DR closure exers. Pt education HEP hip, trunk stretches, DR care; Manual therapy - DR taping, PF stretching, sacral balancing if R innominate anteriorly rotated and sacrum L rotated.
--- NOTE | 2024-07-13 11:04 | PT.OTN ---
Current Diagnoses Other female genital prolapse (07/13/24) Physical Therapy Treatment Note PT-OP-A Visit Information Start: 02/20/24 07:28 Freq: Status: Active Protocol: Document 07/13/24 09:51 LRN (Rec: 07/13/24 10:55 LRN [id number]) Out-Patient Physical Therapy Visit Information Visit Information Visit Type Treatment Note Visit Note 12 visits as of 03/31/24 Visit Start Time 09:51 Visit Stop Time 10:31 Visit Number 12/25 Evaluation Information Evaluation Date 02/28/24 Precautions Precautions Diabetes type 1, Back pain since she was 6 months , since childbirth has tailbone pain. PT-OP-B Current Condition Start: 02/20/24 07:28 Freq: Status: Active Protocol: Document 02/28/24 14:37 LRN (Rec: 02/28/24 17:02 LRN [id number]) Current Condition History of Current Condition Onset Date 11/11/2023 Current Complaints Pelvic organ prolapse History of Current Condition Pt is 3.5 month post- diagnosed with pelvic organ prolapse after pushing 5 hrs with 2nd degree tear up into the cervix. States stitches are dissolved and scar was present at 5 wk appt, but she has not had tear checked for healed. Her main complaint is that she has pain with intercourse, mostly with initial insertion. She denies urinary leakage problems initiating a urine stream, but reports she strains to complete voiding. Pt was on hands/knees with childbirth. Tailbone pain with sitting or walking/exerting too much. Dr Muniz said there was a high probability of tailbone cracked with how long she pushed. Natural vaginal childbirth. Prior Treatments and Tests None Developmental History Developmental History Pt with first child and is breast feeding. 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 spouse with no family locally. Insulin dependent diabetes. PT-OP-C Subjective Start: 02/20/24 07:28 Freq: Status: Active Protocol: Document 07/13/24 09:51 LRN (Rec: 07/13/24 10:55 LRN [id number]) OP-PT Subjective Patient Comments Patient Comments Has been working on posture and has felt improvement in her tailbone pain. Having no coccyx pain since changing her posture. PT-OP-I Pelvic Floor Start: 02/20/24 07:28 Freq: Status: Active Protocol: Document 02/28/24 14:37 LRN (Rec: 02/28/24 17:02 LRN [id number]) Pelvic Floor Assessment Urine Other Urinary Symptoms No urinary leakage. Bowel Other Bowel Symptoms No constipation Bowel Movement Frequency 1 [place] Stool Chart Type 1-7 3 Pelvic Clock Pelvic Clock 12-3 Tenderness Pelvic Clock 3-6 Tenderness Pelvic Clock 6-9 Tenderness Pelvic Clock 9-12 Tenderness Pelvic Clock Other Tenderness: Superficial PF ms: Entire PF clock but mostly 2 , 4 & 8 Deep PF ms: Mostly PF clock 3 -11. Prolapse Cystocele Grade 3 Prolapse Comments Pt Bladder is dropped into 1/2 vaginal opening, but is not a near the opening entry. Deferred assessing for uterine prolapse due to pt tenderness . Perineal Descent Resting Absent Bearing Absent Contraction Ability Voluntary Relaxation Moderate Manual Muscle Testing Left 3 Manual Muscle Testing Right 3 Comments Pelvic Floor Comments Deferred endurance and quick contraction assessment due to pt tenderness. PT-OP-J Posture/Palpation/Skin Start: 02/20/24 07:28 Freq: Status: Active Protocol: Document 02/28/24 14:37 LRN (Rec: 02/28/24 17:02 LRN [id number]) Posture Evaluation Position Standing Head/C-Spine Posture Forward Head T-Spine Posture Increased Kyphosis L-Spine Posture Increased Lordosis Pelvis Posture (L) PSIS Posterior Knee Posture (L) Genu Varus,(R) Genu Varus Comments Posture Comments Posterior L sacral JOYCE and lateral sacral border Palpation Assessment Location ABdomen Palpation Location Abdomen for diastasis rectus and pain. Palpation Findings Tenderness Palpation Details Umbilicus 3 above: 1 finger width (~2.5 cm), shallow at xiphoid process. Umbilicus 2 above: 2 finger widths, shallow Umbilicus 1 above: 2 finger widths Umbilicus Umbilicus: 1 below: 1.5 finger widths Umbilicus: 2 below: .5 finger widths, very shallow Umbilicus: 3 below: closed R leg long in supine Palpation Location R leg long PT-OP-K Range of Motion Start: 02/20/24 07:28 Freq: Status: Active Protocol: Document 02/28/24 14:37 LRN (Rec: 02/28/24 17:02 LRN [id number]) Lumbar Spine Range of Motion Lumbar Spine Active Degrees Testing Position Standing Flexion 100 Extension 25 Rotation Left 45 Rotation Right 45 Lateral Flexion Left 22 Lateral Flexion Right 22 Comments Rotation is with trunk extension Hip Goniometric Range of Motion Hip Right Passive Testing Position Supine Abduction 40 Internal Rotation 25 External Rotation 65 Left Passive Testing Position Supine Abduction 40 Internal Rotation 30 External Rotation 65 PT-OP-M Strength Start: 02/20/24 07:28 Freq: Status: Active Protocol: Document 02/28/24 14:37 LRN (Rec: 02/28/24 17:02 LRN [id number]) Trunk Strength Trunk Manual Muscle Testing Core Stabilization Abdominal doming noted with pt transfers. Hip Strength Hip Manual Muscle Testing Right External Rotation 3 Fair Internal Rotation 4+ Good+ Comments Strength is 5/5 except as indicated above. Hip ext not assessed. Left External Rotation 3 Fair Internal Rotation 4+ Good+ Comments Strength is 5/5 except as indicated above. Hip ext not assessed. PT-OP-Q Treatments Start: 02/20/24 07:28 Freq: Status: Active Protocol: Document 07/13/24 09:51 LRN (Rec: 07/13/24 10:55 LRN [id number]) Therapeutic Exercises Supine Exercises TA/Arm lifts Supine Exercise Name Arm lifts overhead to 90 deg's flex. Equipment Used Thick gym mat Reps/Minutes 10-15x Comments No doming TA/chest press Supine Exercise Name Chest press baby and fwd airplane, ~10 deg's Side bilateral Equipment Used Thick gym mat Reps/Minutes 10-15x Comments No doming w/press, doming with airplane. Pt cued to breath /exhale with ex Trunk rot Supine Exercise Name Pelvis stable: Rot w/upper shoulders moving baby side to side Side bilateral Equipment Used Thick gym mat Reps/Minutes 15x Comments No doming if pt breathes during ex Sitting Exercises Sitting posture Sitting Exercise Name Reviewed Standing Exercises Trunk rot Side bilateral Equipment Used Lev 2 TB Reps/Minutes 15-20x Comments Cued for ribs over hips, tailbone tucked, drawing ribs in/exhale on rot Paloff Press Equipment Used Lev 2 TB Reps/Minutes 15x Comments Cued for tight core, shouldrs over hips, tailbone tucked Therapeutic Activity Therapeutic Activity Body mechanics Name Reviewed as noted by baby mvmt of body wgt fwd shifting as in sit<>stand Reps/Minutes 1' Manual Therapy Treatment Soft Tissue Mobilization Coccyx laterally Body Location Automotive Sales Associate R PF externally & L Lateral Sacrum Mobilization Type Strumming,Trigger Point Release Intensity/Depth Moderate Body Position Prone Comments Mildly tight on L lateral side of coccyx. Self Care: I/S pt in self stretch with fingers lateral to lateral coccyx PT-OP-T Assessment and Plan Start: 02/20/24 07:28 Freq: Status: Active Protocol: Document 07/13/24 09:51 LRN (Rec: 07/13/24 10:55 LRN [id number]) Physical Therapy Assessment Goals Three Impairment Tailbone pain rated 4/10. Short Term Goal (STG) Pt to demonstrate normal pelvic positioning, improve hip mobility (rot, flex) and decrease coccygeal muscle tightness, with 50% less tailbone pain. 04/20/24: Pain rated 2-3/10 after PF stretching. 05/19/24: No pain with immediate sitting, but has it after sitting 45-60+ mimutes. 07/13/24: No coccyx pain, mild>mod tight at L lat side of tailbone. STG Duration 05/08/24 progressing Corrosion Engineer Goal (LTG) Improve pelvic stability to decrease tailbone pain with sitting or exertional walking. 05/19/24: Walking more than 2 miles or hills have tailbone pain. LTG Duration 07/17/24 Two Impairment Dyspareunia, pain mostly with initial insertion (3/10) Short Term Goal (STG) Pt will be able to self stretch with wand properly to reduce pain at superficial PF muscles around the clock. 03/23/24: Pt self stretching with wand; mildly improved PF mobility. 04/27/24: Pain at 4-5 & 7-8 of PF clock. 05/19/24: Pt trained in use of wand to stretch PF. Pain at 4-5, 8 of PF clock. 05/26/24: Mild pain at 8 of PF clock, tightness present. STG Duration 05/08/24 progressing (need to reduce pain) Corrosion Engineer Goal (LTG) Decrease pain of Deep PF muscles around the clock with 0-1/10 pain during intercourse . 04/20/24: Pain rated 2-3/10 after PF stretching. LTG Duration 07/17/24 progressing 04/20/24 One Impairment Pt lacks an independent self care HEP. Short Term Goal (STG) Pt will be educated and able to demonstrate improved posturing and transfers to protect her diastasis rectus and perform proper deep breathing for completing urinary voiding without having to strain. 02/28/24: Initiated HEP: deep breathing ex. 05/19/24: Pt educated in proper sit/stand posture & log roll transfer to protect DR. 06/08/24: Pt demonstrating improved posturing as her awareness has improved. 07/06/24: Educated with handout for posture & body mechanics. STG Duration 05/08/24 progressed 07/06/24 (need breathing to avoid straining w/voiding) [facility] Goal (LTG) Pt will be independent in a self care HEP for PF and hip/ core self stretching ex's, core/pelvic stabilization after corrections, and hip ( rot, flex)/trunk (rot) mobility ex's. 04/27/24: HEP: ILU bowel massage. Self anterior pelvis MFR below pubic ramus and groin. 06/15/24: HEP: Sitting Piriformis stretch & in [place] Pose, supine w/ankle crossed over knee > KTC, Lateral hip stretch, and Child's pose for stretch to L lateral coccyx. 07/06/24: HEP: Clamshell & hip ext strengthening, DKTC stretch. 07/13/24: I/S pt in standing Paloff Press, trunk rot, and Hooklye using baby as resistance for trunk rot and TA tightening (press), and self care self stretch with fingers to lateral side of coccyx. LTG Duration 07/17/24 progressed 07/13/24. 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 Today, pt has learned how to minimize her tailbone pain with holding of baby in centerline instead of off to a side. With core strengthening there is doming with sup march & alt knee/arm lifts. No doming w/sup trunk rot & baby chest press f/b moving baby 10 deg's overhead. Internal assessment of PF/ coccyx for tightness/pain not assessed. Physical Therapy Plan Frequency and Duration Frequency of Treatment 1x/Week Duration of treatment (weeks) 4 Plan of Care Start Date 07/06/24 Plan of Care End Date 07/29/24 Next Visit Focus/Plan Next Note Type Treatment Note Next Visit Plan Next: PN for new POC (6wk). Assess pt transfers to protect her DR. Issue HEP: trunk strengthening (DR protection). Assess pt progress with internal self coccygeal ms stretching L side>R side. If needed, biofeedback with vaginal sensor for PF relaxation awareness when able to tolerated electrode. POC: Therapeutic ex: hip/ trunk stretching, core stab w/ DR closure exers. Pt education HEP hip, trunk stretches, DR care; Manual therapy - DR taping, PF stretching, sacral balancing if R innominate anteriorly rotated and sacrum L rotated.
--- NOTE | 2024-07-20 16:08 | PT.OTN ---
Current Diagnoses Other female genital prolapse (07/20/24) Physical Therapy Treatment Note PT-OP-A Visit Information Start: 02/20/24 07:28 Freq: Status: Active Protocol: Document 07/20/24 13:50 LRN (Rec: 07/20/24 14:32 LRN Laptop) Out-Patient Physical Therapy Visit Information Visit Information Visit Type Progress Note Visit Note 03/31/24 - visits approved. 07/28-10/12/24 PT approved. Visit Start Time 13:50 Visit Stop Time 14:31 Visit Number 01/24 Evaluation Information Evaluation Date 02/28/24 Precautions Precautions Diabetes type 1, Back pain since she was 6 months , since childbirth has tailbone pain. PT-OP-B Current Condition Start: 02/20/24 07:28 Freq: Status: Active Protocol: Document 02/28/24 14:37 LRN (Rec: 02/28/24 17:02 LRN [id number]) Current Condition History of Current Condition Onset Date 11/11/2023 Current Complaints Pelvic organ prolapse History of Current Condition Pt is 3.5 month post- diagnosed with pelvic organ prolapse after pushing 5 hrs with 2nd degree tear up into the cervix. States stitches are dissolved and scar was present at 5 wk appt, but she has not had tear checked for healed. Her main complaint is that she has pain with intercourse, mostly with initial insertion. She denies urinary leakage problems initiating a urine stream, but reports she strains to complete voiding. Pt was on hands/knees with childbirth. Tailbone pain with sitting or walking/exerting too much. Dr Muniz said there was a high probability of tailbone cracked with how long she pushed. Natural vaginal childbirth. Prior Treatments and Tests None Developmental History Developmental History Pt with first child and is breast feeding. 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 spouse with no family locally. Insulin dependent diabetes. PT-OP-C Subjective Start: 02/20/24 07:28 Freq: Status: Active Protocol: Document 07/20/24 13:50 LRN (Rec: 07/20/24 14:32 LRN Laptop) OP-PT Subjective Patient Comments Patient Comments States she received new insurance approval for continuation of PT, but she will need to bring it next visit. States she has no pain with intercourse. Wanting to learn ex's for DR adames. PT-OP-I Pelvic Floor Start: 02/20/24 07:28 Freq: Status: Active Protocol: Document 07/20/24 13:50 LRN (Rec: 07/20/24 14:32 LRN Laptop) Pelvic Floor Assessment Urine Other Urinary Symptoms No urinary leakage. Bowel Other Bowel Symptoms No constipation. Pelvic Clock Pelvic Clock Other No pain around the PF clock, superficial or deep. Tender at L lateral border of coccyx. Prolapse Cystocele Grade 2 Contraction Ability Voluntary Contraction Moderate Voluntary Relaxation Moderate Manual Muscle Testing Left 3 Manual Muscle Testing Right 3 Manual Muscle Testing Anterior 3 Manual Muscle Testing Posterior 3 Muscle Endurance (Seconds) 10 Number of Quick Contractions In 10 4 Seconds PT-OP-J Posture/Palpation/Skin Start: 02/20/24 07:28 Freq: Status: Active Protocol: Document 02/28/24 14:37 LRN (Rec: 02/28/24 17:02 LRN [id number]) Posture Evaluation Position Standing Head/C-Spine Posture Forward Head T-Spine Posture Increased Kyphosis L-Spine Posture Increased Lordosis Pelvis Posture (L) PSIS Posterior Knee Posture (L) Genu Varus,(R) Genu Varus Comments Posture Comments Posterior L sacral JOYCE and lateral sacral border Palpation Assessment Location ABdomen Palpation Location Abdomen for diastasis rectus and pain. Palpation Findings Tenderness Palpation Details Umbilicus 3 above: 1 finger width (~2.5 cm), shallow at xiphoid process. Umbilicus 2 above: 2 finger widths, shallow Umbilicus 1 above: 2 finger widths Umbilicus Umbilicus: 1 below: 1.5 finger widths Umbilicus: 2 below: .5 finger widths, very shallow Umbilicus: 3 below: closed R leg long in supine Palpation Location R leg long PT-OP-K Range of Motion Start: 02/20/24 07:28 Freq: Status: Active Protocol: Document 07/20/24 13:50 LRN (Rec: 07/20/24 14:32 LRN Laptop) Hip Goniometric Range of Motion Hip Right Passive Testing Position Supine Internal Rotation 25 External Rotation 80 Left Passive Testing Position Supine Internal Rotation 35 External Rotation 70 PT-OP-M Strength Start: 02/20/24 07:28 Freq: Status: Active Protocol: Document 02/28/24 14:37 LRN (Rec: 02/28/24 17:02 LRN [id number]) Trunk Strength Trunk Manual Muscle Testing Core Stabilization Abdominal doming noted with pt transfers. Hip Strength Hip Manual Muscle Testing Right External Rotation 3 Fair Internal Rotation 4+ Good+ Comments Strength is 5/5 except as indicated above. Hip ext not assessed. Left External Rotation 3 Fair Internal Rotation 4+ Good+ Comments Strength is 5/5 except as indicated above. Hip ext not assessed. PT-OP-Q Treatments Start: 02/20/24 07:28 Freq: Status: Active Protocol: Document 07/20/24 13:50 LRN (Rec: 07/20/24 16:04 LRN Laptop) Therapeutic Exercises Supine Exercises Modified Bug Supine Exercise Name Baby lifted w/legs, while resting on lower legs with hips 90? flexed Reps/Minutes 5x Comments Guarding of baby by PT. Baby wiggly, so limited reps Kegels Supine Exercise Name Quick and Long hold with PT Peg Gutierrez, supporting baby next to mom. Reps/Minutes 10x quick, Long Hold 10 SH Comments PF strength and relaxation assessment. Baby happy and cooperative. TA/chest press Supine Exercise Name Pt not able to lift baby for TA/Chest press Trunk rot Supine Exercise Name Pelvis stable: Rot w/upper shoulders moving baby side to side Side bilateral Equipment Used plinth Reps/Minutes 15x Comments No doming if: cued pt to breath w/rot & to pull in ribs Other Exercises Hands/knees Other Exercise Name Thread the needle for trunk rot & Hip Flex for core stab; baby supine. Side bilateral Reps/Minutes 10x Self-Care/Home Management Treatment Activities Self-Care/Home Management Activities Verbal review of Paloff Press and TBand trunk rot. PT-OP-T Assessment and Plan Start: 02/20/24 07:28 Freq: Status: Active Protocol: Document 07/20/24 13:50 LRN (Rec: 07/20/24 14:32 LRN Laptop) Physical Therapy Assessment Rehab Potential Rehabilitation Potential Excellent Evaluation Complexity Number of Personal Factors/Comorbidities 3 or More Number of Body Systems Impaired 4 or More Clinical Presentation at Evaluation Evolving Impairments Impairments Posture,ROM,Soft Tissue Mobility,Tone,Transfers Goals Three Impairment Tailbone pain rated 4/10. Short Term Goal (STG) Pt to demonstrate normal pelvic positioning, improve hip mobility (rot, flex) and decrease coccygeal muscle tightness, with 50% less tailbone pain. 04/20/24: Pain rated 2-3/10 after PF stretching. 05/19/24: No pain with immediate sitting, but has it after sitting 45-60+ mimutes. 07/13/24: No coccyx pain, mild>mod tight at L lat side of tailbone. 07/20/24: No coccyx pain, mild>moderate tightness on L lateral side of coccyx. Improved maggie hip ER and L hip IR mobility. Hip PROM (sup): IR is 25 deg's R, 35 deg's L; ER is 80 deg's R, 70 deg's L. STG Duration 08/13/24 progressing (need hip flex) Skilled Nursing Goal (LTG) Improve pelvic stability to decrease tailbone pain with sitting or exertional walking. 05/19/24: Walking more than 2 miles or hills have tailbone pain. 07/20/24: No tailbone pain sitting if posture good. Tailbone pain with exertional walking. LTG Duration 09/03/24 (07/20/24: MET GOAL ) Two Impairment Dyspareunia, pain mostly with initial insertion (3/10) Short Term Goal (STG) Pt will be able to self stretch with wand properly to reduce pain at superficial PF muscles around the clock. 03/23/24: Pt self stretching with wand; mildly improved PF mobility. 04/27/24: Pain at 4-5 & 7-8 of PF clock. 05/19/24: Pt trained in use of wand to stretch PF. Pain at 4-5, 8 of PF clock. 05/26/24: Mild pain at 8 of PF clock, tightness present. 07/20/24: No PF pain. STG Duration 05/08/24 (07/20/24: MET GOAL) Skilled Nursing Goal (LTG) Decrease pain of Deep PF muscles around the clock with 0-1/10 pain during intercourse . 04/20/24: Pain rated 2-3/10 after PF stretching. 07/20/24: Pain 0/10 with intercourse. LTG Duration 07/17/24 (07/20/24: MET GOAL ) One Impairment Pt lacks an independent self care HEP. Short Term Goal (STG) Pt will be educated and able to demonstrate improved posturing and transfers to protect her diastasis rectus and perform proper deep breathing for completing urinary voiding without having to strain. 02/28/24: Initiated HEP: deep breathing ex. 05/19/24: Pt educated in proper sit/stand posture & log roll transfer to protect DR. 06/08/24: Pt demonstrating improved posturing as her awareness has improved. 07/06/24: Educated with handout for posture & body mechanics. 07/20/24: Pt self identifies proper posture to alleviate PF pain with sitting. STG Duration 08/13/24 progressed 07/06/24 (need breathing to avoid straining w/voiding) Skilled Nursing Goal (LTG) Pt will be independent in a self care HEP for PF and hip/ core self stretching ex's, core/pelvic stabilization after corrections, and hip ( rot, flex)/trunk (rot) mobility ex's. 04/27/24: HEP: ILU bowel massage. Self anterior pelvis MFR below pubic ramus and groin. 05/19/24: Transfer training for DR protection and proper sit/stand posture. 06/15/24: HEP: Sitting Piriformis stretch & in [place] Pose, supine w/ankle crossed over knee > KTC, Lateral hip stretch, and Child's pose for stretch to L lateral coccyx. 07/06/24: HEP: Clamshell & hip ext strengthening, DKTC stretch. 07/13/24: I/S pt in standing Paloff Press, trunk rot, and Hooklye using baby as resistance for trunk rot and TA tightening (press), and self care self stretch with fingers to lateral side of coccyx. LTG Duration 09/03/24 progressed 07/13/24. 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 Today, pt had no baby carrier, and was only holding baby; therefore pt agreeable to have Brenda Magana, PT Aide support baby while close to patient during PF exam; baby was happy during therapy. Pt had no PF pain/ tenderness with palpation and no longer is experiencing pain with intercourse. She showed good PF contraction (without pain onset), with slow release between contractions. Her hip ER mobility improved R>L ( no change with IR on left side ), flex will be checked at next visit. Pt had discomfort , not pain, on L side of coccyx with palpation, possibly due to hip mobility asymmetry of muscles (IR tight on left). Pt would like a HEP to lessen her DR before DC ; therefore I recommend continued skilled PT for 1-2 more visits in 4-[address] pt on HEP of ex's to help DR closure and address transfer with DR and breathing to avoid straining. Physical Therapy Plan Frequency and Duration Frequency of Treatment 1x/Week Duration of treatment (weeks) 6 Plan of Care Start Date 07/20/24 Plan of Care End Date 09/03/24 Therapeutic Interventions Therapeutic Interventions Home Exercise Program,Manual Therapy,Neuromuscular Re- education,Self-Care/Home Management,Therapeutic Activities,Therapeutic Exercises Next Visit Focus/Plan Next Note Type Treatment Note Next Visit Plan Review deep breathing for urinary/BM voiding to avoid pushing (assess for cystocele) . Assess pt compliance for transfer to protect her DR. Issue HEP: DR protection trunk strengthening. Assess for cystocele if time. Neuro Re-ed with vaginal sensor for PF relaxation. DC or see for one more visit for follow up of DR atkinson.
--- NOTE | 2024-07-20 16:11 | PT.OPPOC ---
Physical, Occupational & Speech Therapy At [facility] Current Diagnoses Other female genital prolapse (07/20/24) Visit Care Team Role Provider Type CHELO Candelario Family Provider Non-Staff Primary Care Provider Specialty: Nursing Address: [place] [place], [address] Email: Iliana Lopez MD Attending Provider Physician Referring Provider Specialty: Family Practice Obstetrics Address: [address] [place] [address], [id number] Email: [email or web address] Plan Of Care PT-OP-B Current Condition Start: 02/20/24 07:28 Freq: Status: Active Protocol: Document 02/28/24 14:37 LRN (Rec: 02/28/24 17:02 LRN [id number]) Current Condition History of Current Condition Onset Date 11/11/2023 Current Complaints Pelvic organ prolapse History of Current Condition Pt is 3.5 month post- diagnosed with pelvic organ prolapse after pushing 5 hrs with 2nd degree tear up into the cervix. States stitches are dissolved and scar was present at 5 wk appt, but she has not had tear checked for healed. Her main complaint is that she has pain with intercourse, mostly with initial insertion. She denies urinary leakage problems initiating a urine stream, but reports she strains to complete voiding. Pt was on hands/knees with childbirth. Tailbone pain with sitting or walking/exerting too much. Dr Muniz said there was a high probability of tailbone cracked with how long she pushed. Natural vaginal childbirth. Prior Treatments and Tests None Developmental History Developmental History Pt with first child and is breast feeding. 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 spouse with no family locally. Insulin dependent diabetes. PT-OP-T Assessment and Plan Start: 02/20/24 07:28 Freq: Status: Active Protocol: Document 07/20/24 13:50 LRN (Rec: 07/20/24 14:32 LRN Laptop) Physical Therapy Assessment Rehab Potential Rehabilitation Potential Excellent Evaluation Complexity Number of Personal Factors/Comorbidities 3 or More Number of Body Systems Impaired 4 or More Clinical Presentation at Evaluation Evolving Impairments Impairments Posture,ROM,Soft Tissue Mobility,Tone,Transfers Goals Three Impairment Tailbone pain rated 4/10. Short Term Goal (STG) Pt to demonstrate normal pelvic positioning, improve hip mobility (rot, flex) and decrease coccygeal muscle tightness, with 50% less tailbone pain. 04/20/24: Pain rated 2-3/10 after PF stretching. 05/19/24: No pain with immediate sitting, but has it after sitting 45-60+ mimutes. 07/13/24: No coccyx pain, mild>mod tight at L lat side of tailbone. 07/20/24: No coccyx pain, mild>moderate tightness on L lateral side of coccyx. Improved maggie hip ER and L hip IR mobility. Hip PROM (sup): IR is 25 deg's R, 35 deg's L; ER is 80 deg's R, 70 deg's L. STG Duration 08/13/24 progressing (need hip flex) Mcc Goal (LTG) Improve pelvic stability to decrease tailbone pain with sitting or exertional walking. 05/19/24: Walking more than 2 miles or hills have tailbone pain. 07/20/24: No tailbone pain sitting if posture good. Tailbone pain with exertional walking. LTG Duration 09/03/24 (07/20/24: MET GOAL ) Two Impairment Dyspareunia, pain mostly with initial insertion (3/10) Short Term Goal (STG) Pt will be able to self stretch with wand properly to reduce pain at superficial PF muscles around the clock. 03/23/24: Pt self stretching with wand; mildly improved PF mobility. 04/27/24: Pain at 4-5 & 7-8 of PF clock. 05/19/24: Pt trained in use of wand to stretch PF. Pain at 4-5, 8 of PF clock. 05/26/24: Mild pain at 8 of PF clock, tightness present. 07/20/24: No PF pain. STG Duration 05/08/24 (07/20/24: MET GOAL) Mcc Goal (LTG) Decrease pain of Deep PF muscles around the clock with 0-1/10 pain during intercourse . 04/20/24: Pain rated 2-3/10 after PF stretching. 07/20/24: Pain 0/10 with intercourse. LTG Duration 07/17/24 (07/20/24: MET GOAL ) One Impairment Pt lacks an independent self care HEP. Short Term Goal (STG) Pt will be educated and able to demonstrate improved posturing and transfers to protect her diastasis rectus and perform proper deep breathing for completing urinary voiding without having to strain. 02/28/24: Initiated HEP: deep breathing ex. 05/19/24: Pt educated in proper sit/stand posture & log roll transfer to protect DR. 06/08/24: Pt demonstrating improved posturing as her awareness has improved. 07/06/24: Educated with handout for posture & body mechanics. 07/20/24: Pt self identifies proper posture to alleviate PF pain with sitting. STG Duration 08/13/24 progressed 07/06/24 (need breathing to avoid straining w/voiding) Recreational Sports Director Goal (LTG) Pt will be independent in a self care HEP for PF and hip/ core self stretching ex's, core/pelvic stabilization after corrections, and hip ( rot, flex)/trunk (rot) mobility ex's. 04/27/24: HEP: ILU bowel massage. Self anterior pelvis MFR below pubic ramus and groin. 05/19/24: Transfer training for DR protection and proper sit/stand posture. 06/15/24: HEP: Sitting Piriformis stretch & in Maria Stein Pose, supine w/ankle crossed over knee > KTC, Lateral hip stretch, and Child's pose for stretch to L lateral coccyx. 07/06/24: HEP: Clamshell & hip ext strengthening, DKTC stretch. 07/13/24: I/S pt in standing Paloff Press, trunk rot, and Hooklye using baby as resistance for trunk rot and TA tightening (press), and self care self stretch with fingers to lateral side of coccyx. LTG Duration 09/03/24 progressed 07/13/24. 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 Today, pt had no baby carrier, and was only holding baby; therefore pt agreeable to have Brenda Magana, PT Aide support baby while close to patient during PF exam; baby was happy during therapy. Pt had no PF pain/ tenderness with palpation and no longer is experiencing pain with intercourse. She showed good PF contraction (without pain onset), with slow release between contractions. Her hip ER mobility improved R>L ( no change with IR on left side ), flex will be checked at next visit. Pt had discomfort , not pain, on L side of coccyx with palpation, possibly due to hip mobility asymmetry of muscles (IR tight on left). Pt would like a HEP to lessen her DR before DC ; therefore I recommend continued skilled PT for 1-2 more visits in 4-[address] pt on HEP of ex's to help DR closure and address transfer with DR and breathing to avoid straining. Physical Therapy Plan Frequency and Duration Frequency of Treatment 1x/Week Duration of treatment (weeks) 6 Plan of Care Start Date 07/20/24 Plan of Care End Date 09/03/24 Therapeutic Interventions Therapeutic Interventions Home Exercise Program,Manual Therapy,Neuromuscular Re- education,Self-Care/Home Management,Therapeutic Activities,Therapeutic Exercises Next Visit Focus/Plan Next Note Type Treatment Note Next Visit Plan Review deep breathing for urinary/BM voiding to avoid pushing (assess for cystocele) . Assess pt compliance for transfer to protect her DR. Issue HEP: DR protection trunk strengthening. Assess for cystocele if time. Neuro Re-ed with vaginal sensor for PF relaxation. DC or see for one more visit for follow up of DR [email or web address]'bbiiana. Plan of Care Dates Plan of Care Start Date 07/20/24 Plan of Care End Date 09/03/24 Electronically Signed by: Felecia Barclay, PT 07/20/24 9428 If you are in agreement with this Plan of Care, please return a signed and dated copy. I have reviewed this Plan of Care and certify that the skilled therapy services above are required to meet the patient?s needs. Physician Signature Date Printed Name and Credentials Clinical Instructor Signature Printed Name and Credentials
--- NOTE | 2024-08-10 18:03 | PT.OTN ---
Current Diagnoses Other female genital prolapse (08/10/24) Physical Therapy Treatment Note PT-OP-A Visit Information Start: 02/20/24 07:28 Freq: Status: Active Protocol: Document 08/10/24 13:53 LRN (Rec: 08/10/24 14:36 LRN Laptop) Out-Patient Physical Therapy Visit Information Visit Information Visit Type Treatment Note Visit Note 03/31/24 - visits approved. 07/28-10/12/24 PT approved. Visit Start Time 13:53 Visit Stop Time 14:35 Visit Number 02/24 (1 after PN) PT-OP-B Current Condition Start: 02/20/24 07:28 Freq: Status: Active Protocol: Document 02/28/24 14:37 LRN (Rec: 02/28/24 17:02 LRN [id number]) Current Condition History of Current Condition Onset Date 11/11/2023 Current Complaints Pelvic organ prolapse History of Current Condition Pt is 3.5 month post- diagnosed with pelvic organ prolapse after pushing 5 hrs with 2nd degree tear up into the cervix. States stitches are dissolved and scar was present at 5 wk appt, but she has not had tear checked for healed. Her main complaint is that she has pain with intercourse, mostly with initial insertion. She denies urinary leakage problems initiating a urine stream, but reports she strains to complete voiding. Pt was on hands/knees with childbirth. Tailbone pain with sitting or walking/exerting too much. Dr Muniz said there was a high probability of tailbone cracked with how long she pushed. Natural vaginal childbirth. Prior Treatments and Tests None Developmental History Developmental History Pt with first child and is breast feeding. 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 spouse with no family locally. Insulin dependent diabetes. PT-OP-C Subjective Start: 02/20/24 07:28 Freq: Status: Active Protocol: Document 08/10/24 13:53 LRN (Rec: 08/10/24 14:36 LRN Laptop) OP-PT Subjective Patient Comments Patient Comments Went to [place] for the weekend. Was conscious of sitting posture and had slight pain on plane, but did stretches and changed posture and was able to relieve the pain. No tailbone pain with exertional walking. Doing strengthening, she feels stronger in the hips. PT-OP-I Pelvic Floor Start: 02/20/24 07:28 Freq: Status: Active Protocol: Document 07/20/24 13:50 LRN (Rec: 07/20/24 14:32 LRN Laptop) Pelvic Floor Assessment Urine Other Urinary Symptoms No urinary leakage. Bowel Other Bowel Symptoms No constipation. Pelvic Clock Pelvic Clock Other No pain around the PF clock, superficial or deep. Tender at L lateral border of coccyx. Prolapse Cystocele Grade 2 Contraction Ability Voluntary Contraction Moderate Voluntary Relaxation Moderate Manual Muscle Testing Left 3 Manual Muscle Testing Right 3 Manual Muscle Testing Anterior 3 Manual Muscle Testing Posterior 3 Muscle Endurance (Seconds) 10 Number of Quick Contractions In 10 4 Seconds PT-OP-J Posture/Palpation/Skin Start: 02/20/24 07:28 Freq: Status: Active Protocol: Document 02/28/24 14:37 LRN (Rec: 02/28/24 17:02 LRN [id number]) Posture Evaluation Position Standing Head/C-Spine Posture Forward Head T-Spine Posture Increased Kyphosis L-Spine Posture Increased Lordosis Pelvis Posture (L) PSIS Posterior Knee Posture (L) Genu Varus,(R) Genu Varus Comments Posture Comments Posterior L sacral JOYCE and lateral sacral border Palpation Assessment Location ABdomen Palpation Location Abdomen for diastasis rectus and pain. Palpation Findings Tenderness Palpation Details Umbilicus 3 above: 1 finger width (~2.5 cm), shallow at xiphoid process. Umbilicus 2 above: 2 finger widths, shallow Umbilicus 1 above: 2 finger widths Umbilicus Umbilicus: 1 below: 1.5 finger widths Umbilicus: 2 below: .5 finger widths, very shallow Umbilicus: 3 below: closed R leg long in supine Palpation Location R leg long PT-OP-K Range of Motion Start: 02/20/24 07:28 Freq: Status: Active Protocol: Document 07/20/24 13:50 LRN (Rec: 07/20/24 14:32 LRN Laptop) Hip Goniometric Range of Motion Hip Right Passive Testing Position Supine Internal Rotation 25 External Rotation 80 Left Passive Testing Position Supine Internal Rotation 35 External Rotation 70 PT-OP-M Strength Start: 02/20/24 07:28 Freq: Status: Active Protocol: Document 02/28/24 14:37 LRN (Rec: 02/28/24 17:02 LRN [id number]) Trunk Strength Trunk Manual Muscle Testing Core Stabilization Abdominal doming noted with pt transfers. Hip Strength Hip Manual Muscle Testing Right External Rotation 3 Fair Internal Rotation 4+ Good+ Comments Strength is 5/5 except as indicated above. Hip ext not assessed. Left External Rotation 3 Fair Internal Rotation 4+ Good+ Comments Strength is 5/5 except as indicated above. Hip ext not assessed. PT-OP-Q Treatments Start: 02/20/24 07:28 Freq: Status: Active Protocol: Document 08/10/24 13:53 LRN (Rec: 08/10/24 14:36 LRN Laptop) Therapeutic Exercises Supine Exercises KTC stretch Side bilateral Reps/Minutes 60 SH x 1 Comments No groin pain bilaterally, ROM taken Trunk rot Supine Exercise Name LTR knee rolls Side bilateral Reps/Minutes 2x Comments Reviewed Piriformis stretch Side right Reps/Minutes 60 SH x 2 Comments Hip IR/ER PROM taken DKTC Reps/Minutes 60 SH x 1 Deep Breathing Supine Exercise Name Reviewed for pt PF relaxation. Reps/Minutes 1' Happy Baby Pose Reps/Minutes 60 SH x 1 Sidelying Exercises Clamshell Sidelying Exercise Name Cued for core stability and hip ER strengthening Side bilateral Reps/Minutes 8x Comments Much cuing to avoid gluteal strengthening but to incr R hip ER strength. Sitting Exercises Hip ER Side right Reps/Minutes 60 SH x 1 Piriformis stretch Sitting Exercise Name Knee to opp shldr Side left Reps/Minutes 60 SH x 1 Comments EXtra time for positional training Standing Exercises Trunk rot Side bilateral Equipment Used Lev 2 TB Reps/Minutes 15x Comments Cued to draw ribs in and not arch with rotation. Extra time for proper mvm Paloff Press Side bilateral Equipment Used Lev 2 TB Reps/Minutes 15x 2 Self-Care/Home Management Treatment Activities Self-Care/Home Management Activities Reviewed & issued HEP: Paloff Press and Active trunk rotation. Issued Lev 2 TB. PT-OP-T Assessment and Plan Start: 02/20/24 07:28 Freq: Status: Active Protocol: Document 08/10/24 13:53 LRN (Rec: 08/10/24 14:36 LRN Laptop) Physical Therapy Assessment Goals Three Impairment Tailbone pain rated 4/10. Short Term Goal (STG) Pt to demonstrate normal pelvic positioning, improve hip mobility (rot, flex) and decrease coccygeal muscle tightness, with 50% less tailbone pain. 04/20/24: Pain rated 2-3/10 after PF stretching. 05/19/24: No pain with immediate sitting, but has it after sitting 45-60+ mimutes. 07/13/24: No coccyx pain, mild>mod tight at L lat side of tailbone. 07/20/24: No coccyx pain, mild>moderate tightness on L lateral side of coccyx. Improved maggie hip ER and L hip IR mobility. Hip PROM (sup): IR is 25 deg's R, 35 deg's L; ER is 80 deg's R, 70 deg's L. 08/10/24: No coccyx pain, and managed [facility]. Hip PROM flex is: 125 R, 127 L; Hip IR is 30 deg's R, 35 deg's L; ER is 80 deg's R, 70 deg's L. STG Duration 08/13/24 (08/10/24: MET GOAL) Chronometer Assembler And Adjuster Goal (LTG) Improve pelvic stability to decrease tailbone pain with sitting or exertional walking. 05/19/24: Walking more than 2 miles or hills have tailbone pain. 07/20/24: No tailbone pain sitting if posture good. Tailbone pain with exertional walking. 08/10/24: Pt able to manage her tailbone pain onset in sitting & no c/o tailbone pain with exertional walking. LTG Duration 09/03/24 (08/10/24: MET GOAL ) Two Impairment Dyspareunia, pain mostly with initial insertion (3/10) Short Term Goal (STG) Pt will be able to self stretch with wand properly to reduce pain at superficial PF muscles around the clock. 03/23/24: Pt self stretching with wand; mildly improved PF mobility. 04/27/24: Pain at 4-5 & 7-8 of PF clock. 05/19/24: Pt trained in use of wand to stretch PF. Pain at 4-5, 8 of PF clock. 05/26/24: Mild pain at 8 of PF clock, tightness present. 07/20/24: No PF pain. STG Duration 05/08/24 (07/20/24: MET GOAL) Chcf Goal (LTG) Decrease pain of Deep PF muscles around the clock with 0-1/10 pain during intercourse . 04/20/24: Pain rated 2-3/10 after PF stretching. 07/20/24: Pain 0/10 with intercourse. LTG Duration 07/17/24 (07/20/24: MET GOAL ) One Impairment Pt lacks an independent self care HEP. Short Term Goal (STG) Pt will be educated and able to demonstrate improved posturing and transfers to protect her diastasis rectus and perform proper deep breathing for completing urinary voiding without having to strain. 02/28/24: Initiated HEP: deep breathing ex. 05/19/24: Pt educated in proper sit/stand posture & log roll transfer to protect DR. 06/08/24: Pt demonstrating improved posturing as her awareness has improved. 07/06/24: Educated with handout for posture & body mechanics. 07/20/24: Pt self identifies proper posture to alleviate PF pain with sitting. 08/10/24: No pain with BM's, no straining with BMs or urinary voiding. Deep breathing mechanics are good. STG Duration 08/13/24 (08/10/24: MET GOAL ) Chcf Goal (LTG) Pt will be independent in a self care HEP for PF and hip/ core self stretching ex's, core/pelvic stabilization after corrections, and hip ( rot, flex)/trunk (rot) mobility ex's. 04/27/24: HEP: ILU bowel massage. Self anterior pelvis MFR below pubic ramus and groin. 08/10/24: HEP: Paloff Press and Active trunk rotation. Issued Lev 2 TB. 05/19/24: Transfer training for DR protection and proper sit/stand posture. 06/15/24: HEP: Sitting Piriformis stretch & in Jameson Pose, supine w/ankle crossed over knee > KTC, Lateral hip stretch, and Child's pose for stretch to L lateral coccyx. 07/06/24: HEP: Clamshell & hip ext strengthening, DKTC stretch. 07/13/24: I/S pt in standing Paloff Press, trunk rot, and Hooklye using baby as resistance for trunk rot and TA tightening (press), and self care self stretch with fingers to lateral side of coccyx. 08/10/24: HEP: Paloff Press and Active trunk rotation with Lev 2 TB issued. LTG Duration 09/03/24 (08/10/24: MET GOAL ) Assessment Summary Assessment Pt was being seen for dyspareunia, PF tightness, hip /trunk mobility tightness and pelvic positional dysfunction. She presents today with no c /o PF pain and no pain with intercourse. She has learned how to manage her coccyx pain with stretches and proper sitting posture and has been given a HEP to further progress her towards full diastasis closure (for her minimal diastasis). The pt is ready for discharge to her self care HEP. Physical Therapy Plan Frequency and Duration Frequency of Treatment 1x/Week Duration of treatment (weeks) 6 Plan of Care Start Date 07/20/24 Plan of Care End Date 09/03/24 Discharge Physical Therapy Discharge Reasons Goals Met Discharge Comments Thank you for your referral.
== END 2024-08-11 13:26 | disposition home or self-care (01) ==
LOC: PHYS 13:45
PROVIDERS: Family Provider Nurse Practitioner Family; PCP Nurse Practitioner Family; Referring Provider Student in an Organized Health Care Education/Training Program; Visit Provider Student in an Organized Health Care Education/Training Program
DX: N81.89 Other female genital prolapse (principal)
CPT/HCPCS: 97110; 97140; 97162; 97530; 97535

== ENCOUNTER → 2025-02-16 07:51 | Outpatient (CLI) | payer OTHER, SELFPAY ==
--- NOTE | 2025-02-16 07:52 | DI.US.S_ITS ---
PROCEDURE: US OB >= 14 WEEKS FETUS INDICATIONS: 20 week anatomy scan OUTSIDE/PRIOR DATING DATA: Last menstrual period (LMP): September 28, 2024. LMP-based estimated date of delivery (JERILYN): July 05, 2025. First dating scan (date and location): December 21, 2024. Estimated date of delivery (JERILYN) from first dating scan: July 05, 2025. The calculations are made using the clinical JERILYN of July 05, 2025. TECHNIQUE: Real-time scanning was performed of the fetus, with image documentation and biometric measurements. Endovaginal scanning: Not performed COMPARISON: None. FINDINGS: General: A single living intrauterine gestation is present. Presentation: Breech. Placenta: Placental position is anterior , without previa. Amniotic fluid index: 13.0 cm, normal range is 5-24 cm. Single deepest vertical pocket is 4.1 cm. heart rate: 141 beats per minute. Maternal cervical canal: 5.0 cm long. Normal lower limit is 2.5 cm. biometrics: Biparietal diameter: 4.4 cm, 19 weeks 2 days Head circumference: 15.7 cm, 18 weeks and 4 days Abdominal circumference: 15.4 cm, 20 weeks and 4 days Femur length: 2.7 cm, 18 weeks and 2 days Clinically estimated gestational age: 20 weeks and 1 day Composite gestational age from present scan: 19 weeks and 1 day Estimated weight and percentile: 293 g which correlates with the 14th percentile for gestational age. Anatomic survey: Neuro: Ventricles are non-dilated at less than 10 mm. Cisterna magna is normal at 3-11 mm. Cerebellum is normal in size and morphology. Nuchal skin fold: Normal at less than 6 mm between 14-21 weeks gestational age. Face: Nose and lips, facial profile are normal. Spine: No evidence for spina bifida. Heart: 4-chambered heart is present, with normal ventricular outflow tracts. Diaphragm: Diaphragm is intact. Stomach: Left-sided stomach is present. Kidneys: No hydronephrosis. Normal is less than 5 mm in 2nd trimester, less than 7 mm in 3rd trimester. Cord: Umbilical cord not well visualized secondary to movement in positioning throughout the exam. A definite three-vessel cord not confirmed although at least 2 vessels visualized. Bladder: Normal in size. Extremities: All 4 extremities identified. IMPRESSION: Single living intrauterine gestation with estimated sonographic gestational age of approximately 19 weeks and 1 day versus 20 weeks and 1 day by last menstrual period. Estimated weight of approximately 293 g which correlates with the 14th percentile for gestational age. The umbilical cord is not well visualized to document a 3 vessel versus 2 vessel cord. Follow-up imaging recommended. Otherwise, unremarkable second-trimester anatomy screening survey. We strive to produce accurate, complete, and clear reports of imaging services. To assist us in improving patient care, this report was composed using standard report templates and voice recognition software. Therefore, it may contain abnormal punctuation, insertions and/or omissions. Occasional wrong-word or sound-alike substitutions may occur. Though we review the report and make efforts to correct it, we do recommend that the report be read carefully in proper context to recognize any text inaccuracies. Dictated by: Nasim Snider M.D. on 02/16/2025 at 11:17 Approved by: Nasim Snider M.D. on 02/16/2025 at 11:37
== END ==
LOC: US 07:52
PROVIDERS: Visit Provider Nurse Practitioner Obstetrics & Gynecology
DX: Z34.92 Encounter for supervision of normal pregnancy, unspecified, second trimester (principal); Z3A.19 19 weeks gestation of pregnancy
CPT/HCPCS: 76811